=== PATIENT | female | born 1945 | race Caucasian/White ===

== ENCOUNTER 2023-06-14 21:18 | Outpatient (BNV) | payer MEDICARE, MEDICAID, SELFPAY | END 2023-06-15 09:00 | PROVIDERS: Admitting Provider Psychiatry & Neurology Psychiatry; PCP Internal Medicine; Visit Provider Internal Medicine Cardiovascular Disease | DX: I44.0 Atrioventricular block, first degree (principal) | CPT/HCPCS: 93010 ==

== ENCOUNTER 2023-06-14 21:18 | Inpatient (IN) | payer MEDICARE, MEDICAID, SELFPAY ==
--- NOTE | ~2023-06-14 | US_ITS ---
EXAMINATION: US VENOUS ULTRASOUND WITH DOPPLER LOWER EXTREMITY, BILATERAL CLINICAL INFORMATION: ble edema, calf swelling/tenderness, r/o dvt COMPARISON: None available. TECHNIQUE: Ultrasound of the deep veins is performed from the hip to the calf with compression sonography and color and pulse Doppler assessment. Spectral analysis with color-flow imaging is performed. FINDINGS: RIGHT: There is normal venous compression and respiratory variation and augmented flow. The visualized common femoral vein, superficial femoral vein, profunda femoral vein, popliteal vein, and the trifurcation region shows no evidence of deep venous thrombosis. There is no significant popliteal fossa cyst. LEFT: There is normal venous compression and respiratory variation and augmented flow. The visualized common femoral vein, superficial femoral vein, profunda femoral vein, popliteal vein, and the trifurcation region shows no evidence of deep venous thrombosis. There is no significant popliteal fossa cyst. If the patient's symptoms persist, followup ultrasound in 5 days 7 days might be of value to exclude proximal propagation from a non-visualized calf vein. US/US venous duplex LE BI IMPRESSION: No DVT demonstrated in the bilateral lower extremities.
--- OUTSIDE RECORDS SUMMARY | 2023-06-14 21:21 | XMS_ITS | Continuity of Care Document ---
Author Organization [facility] Address [address] [place] [address] Phone Care Team Providers Care Track Supervisor Name Role Phone No Primary Care, Physician Primary Care Provider Unavailable MD Ani Tillman Attending Provider MD Jas Michele Primary Care Provide r MD Mayco Contreras Admit Provider + MD Baljit Champagne Attending Provider [phone] Care Teams Patient Care Team Team Status: Active Member Role Status Dates Jas Michele MD Primary Care Provider Act margaret Visit Care Team Team Status: Inactive Member Role Status Dates Physician No Primary Care Primary Care Provider Active Ani Tillman MD Attending Provider Active Visit Care Team Team Status: Inactive Member Role Status Dates Estefania Jonas MD Emergency Provider Active Wilfred Bernabe MD Other Provider Active Jas Michele MD Primary Care Provider Act margaret Mayco Contreras MD Admit Provider Active Baljit Champagne MD Attending Provider Active Visit Care Team Team Status: Inactive Member Role Status Dates Physician No Primary Care Primary Care Provider Active Ani Tillman MD Emergency Provider Active Chief Complaint and Reason for Visit Chief Complaint weakness DIZZY, UNSTEADY GAIT Reason for Visit Dizziness Weakness Allergies, Adverse Reactions, Alerts Allergen Type Severity Reaction Last Updated Verified Status meclizine Allergy Unknown November 20, 2022 9:06am Byron s Active antihistamines Allergy Unknown November 25, 2022 12:2 6am No Active Social History Smoking Status Status Start Date End Date Date of Observa tion Unknown if ever smoked 2022 1:15pm Observation Status Date of Observation Not November 25, 2022 Observation Status Observation Response Date of Response Is pt a current\former smoke r or user of tobacco products? No November 25, 2022 1:15pm Does the patient use drugs? No Nov 1:15pm Additional Data Assigned Sex Female Problems Active Problems Medical Problem Onset Date Status Dizziness Active Hyperglycemia Active Weakness Active High blood pressure Active Medications Medication Status Dose Units Route Directions Qty Days Start Javi e End Date Instructions Multivitamin Active 1 TAB PO Daily Nov 12:00am Aspirin Active 81 MG PO Daily 30 30 November 30, 2022 12:00am Atorvastatin (Lipitor) 40 mg Tablet Active 80 MG PO Every Evening 60 30 November 30, 2022 12:00am Lisinopril Active 20 MG PO Daily 30 30 2022 12:00am Immunizations Immunization Event Date Not Given Reason Dose Number [employer] Lot Number Vaccine Information Statement (VIS) Detail influenza, high-dose, quadrivalent November 25, 2022 [id number] Procedures Procedure Date Performed Status XR chest pa & lat November 20, 2022 9:13am co mpleted CT head/brain wo con November 25, 2022 2:36am completed MR brain wo con November 25, 2022 10:41am com pleted CT angio head and neck November 25, 2022 10:4 2am completed US echo bubble study November 27, 2022 12:00a m completed Relevant Diagnostic Tests and/or Laboratory Data Laboratory Results Test Date/Time Result Interpretation Reference Range Result Comment Performing Site White Blood Count November 20, 2022 9:27am 6.9 10^3/uL 4.5-10.5 [facility] [id number] [address] [facility] [address] White Blood Count November 30, 2022 7:04am 7.5 10^3/uL 3.9-10.8 Delta: 11.0 on 11/29/22-0706 [facility] [id number] [address] [place] [address] Red Blood Count November 20, 2022 9:27am 4.50 10^6/uL 4.00-5.00 [facility] [id number] [address] [facility] [address] Red Blood Count November 30, 2022 7:04am 4.3 10^6/uL 4.2-5.6 [facility] [id number] [address] [facility] [address] Hemoglobin November 20, 2022 9:27am 13.9 g/dL 11.8-15.8 [facility] [id number] [address] Amb[address] [facility] [address] Hemoglobin November 30, 2022 7:04am 13.3 g/dL 12.0-15.2 [facility] [id number] [address] [facility] [address] Hematocrit November 20, 2022 9:27am 42.2 % 35.0-45.0 [facility] [id number] [address] Amb[address] [facility] [address] Hematocrit November 30, 2022 7:04am 40.5 % 35.0-45.0 [facility] [id number] [address] [facility] [address] Mean Corpuscular Volume November 20, 2022 9:27am 93.8 fL 80.0-100.0 [facility] [id number] [address] [facility] [address] Mean Corpuscular Volume November 30, 2022 7:04am 95.1 fL 82.0-102.0 [facility] [id number] [address] [facility] [address] Mean Corpuscular Hemoglobin November 20, 2022 9:27am 30.9 pg 23.0-31.0 [facility] [id number] [address] [facility] [facility] [address] Mean Corpuscular Hemoglobin November 30, 2022 7:04am 31.2 pg 25.6-33.2 [facility] [id number] [address] [facility] [address] Mean Corpuscular Hemoglobin Concent November 20, 2022 9:27am 32.9 g/dL 32.0-36.0 [facility] [id number] [address] [facility] [address] Mean Corpuscular Hemoglobin Concent November 30, 2022 7:04am 32.8 g/dL 32.0-36.0 [facility] [id number] [address] [facility] [address] Platelet Count November 20, 2022 9:27am 247 10^3uL 150-400 [facility] [id number] [address] [facility] [address] Platelet Count November 30, 2022 7:04am 263 10^3uL 150-400 [facility] [id number] [address] [facility] [address] RDW Standard Deviation November 30, 2022 7:04am 46.8 fL 32.9-69.6 [facility] [id number] [address] [facility] [address] RDW Coefficient of Variation November 20, 2022 9:27am 13.0 % 12.5-15.5 [facility] [id number] [address] [facility] [address] RDW Coefficient of Variation November 30, 2022 7:04am 13.3 % 12.0-15.0 [facility] [id number] [address] [facility] [address] Mean Platelet Volume November 20, 2022 9:27am 10.4 fL 7.0-10.5 [facility] [id number] [address] Timmons Katina [facility] [address] Mean Platelet Volume November 30, 2022 7:04am 11.1 fL 8.5-13.0 [facility] [id number] [address] [facility] [address] Neutrophils (%) (Auto) November 20, 2022 9:27am 72 % 44-74 [facility] [id number] [address] [facility] [address] Neutrophils (%) (Auto) November 26, 2022 6:18am 74.7 % 43.0-74.0 Delta: 63.6 on 11/25/22-0125 [facility] [id number] 199 [facility] [address] Lymphocytes (%) (Auto) November 20, 2022 9:27am 21 % 16-46 [facility] [id number] [address] [facility] [address] Lymphocytes (%) (Auto) November 26, 2022 6:18am 18.3 % 17.0-47.0 [facility] [id number] [address] [facility] [address] Monocytes (%) (Auto) November 20, 2022 9:27am 5 % 5-12 [facility] [id number] [address] [facility] [address] Monocytes (%) (Auto) November 26, 2022 6:18am 5.4 % 5.0-12.0 [facility] [id number] [address] [facility] [address] Eosinophils (%) (Auto) November 20, 2022 9:27am 1 % 0-8 [facility] [id number] [address] [facility] [address] Eosinophils (%) (Auto) November 26, 2022 6:18am 1.0 % 0.1-6.0 [facility] [id number] [address] [facility] [address] Basophils (%) (Auto) November 20, 2022 9:27am 0 % 0-2 [facility] [id number] [address] [facility] [address] Basophils (%) (Auto) November 26, 2022 6:18am 0.4 % 0.0-2.0 [facility] [id number] 199 [facility] [address] Immature/Total Granulocytes (auto) November 26, 2022 6:18am 0.2 % 0.001-5.0 [address] 199 [facility] [address] Nucleated Red Blood Cells % (auto) November 26, 2022 6:18am 0.0 % 0.0-0.2 [address] 199 [facility] [address] Absolute Neutrophils (auto) November 26, 2022 6:18am 6.1 10^3/uL 1.5-8.1 [place] [id number] [address] [place] [address] Absolute Lymphocytes (auto) November 26, 2022 6:18am 1.5 10^3/uL 0.95-4.2 [address] [place] [address] Absolute Monocytes (auto) November 26, 2022 6:18am 0.4 10^3/uL 0.2-1.2 [address] [place] [address] Absolute Eosinophils (auto) November 26, 2022 6:18am 0.1 10^3/uL 0.06-0.6 [address] [place] [address] Absolute Basophils (auto) November 26, 2022 6:18am 0.0 10^3/uL 0.0-0.12 [address] [place] [address] Absolute Immature Granulocyte (auto November 26, 2022 6:18am 0.02 K/uL 0.00-0.66 [address] [place] [address] Nucleated RBC Absolute Count (auto) November 26, 2022 6:18am 0.0 K/uL 0.00-0.[address] [place] [address] Urine Color November 20, 2022 9:20am Yellow Yellow [facility] [id number] [address] [facility] [address] Urine Clarity November 20, 2022 9:20am Clear Clear [facility] [place] [address] [facility] [address] Urine Specific Hartline November 20, 2022 9:20am <= 1.005 1.005-1.03 0 [facility] [place] [id number] [address] [facility] [address] Urine Glucose (UA) November 20, 2022 9:20am Negative Negative [facility] [place] [facility] [id number] [address] [facility] [address] Urine Bilirubin November 20, 2022 9:20am Negative Negative [facility] [place] [id number] 100 [facility] [address] Urine Ketones November 20, 2022 9:20am Negative Negative [facility] [place] [id number] 100 [facility] [address] Urine Occult Blood November 20, 2022 9:20am Negative Negative [facility] [place] [id number] [address] [facility] [address] Urine pH November 20, 2022 9:20am 6.0 5.0-7.0 [facility] [id number] [address] [facility] [address] Urine Protein November 20, 2022 9:20am Negative mg/dL Negative [facility] [id number] 100 [facility] [address] Urine Urobilinogen November 20, 2022 9:20am 0.2 E.U./dL 0.2-1.0 [facility] [id number] [address] [facility] [address] Urine Nitrite November 20, 2022 9:20am Negative Negative [facility] [place] [id number] 100 [facility] [address] Urine Leukocyte Esterase Caroline 15th, 2023 9:20am Trace Negative [facility] [place] [facility] [address] [place] [address] Urine Culture Reflexed November 20, 2022 9:20am N [facility] [place] [facility] [address] [place] [address] Urine WBC November 20, 2022 9:20am 6-10 /hpf 0-2 [facility] [place] [id number] [address] [place] [address] Urine RBC November 20, 2022 9:20am None seen /hpf 0-2 [facility] [id number] [address] [place] [address] Urine Squamous Epithelial Cells November 20, 2022 9:20am 1+ /hpf Trace [facility] [address] [place] [address] Urine Bacteria November 20, 2022 9:20am 1+ /hpf None Seen [facility] [place] [facility] [id number] [address] [place] [address] Urine Mucus November 20, 2022 9:20am None seen /hpf None Seen [facility] [place] [facility] [id number] [address] [place] [address] Sodium Level November 20, 2022 9:27am 145 mmol/L 128-145 [facility] [place] [facility] [id number] [address] [place] [address] Sodium Level November 30, 2022 7:04am 141 mmol/L 136-145 [facility] [id number] 199 [facility] [address] Potassium Level November 20, 2022 9:27am 4.2 mmol/L 3.6-5.1 [facility] [place] [facility] [id number] [address] [place] [address] Potassium Level November 30, 2022 7:04am 4.3 mmol/L 3.5-5.1 [facility] [id number] 199 [facility] [address] Chloride Level November 20, 2022 9:27am 107 mmol/L 98-108 [facility] [id number] [address] [facility] [address] Chloride Level November 30, 2022 7:04am 108 mmol/L 98-107 Delta: 101 on 11/28/22-0708 [facility] [id number] [address] [facility] [address] Carbon Dioxide Level November 20, 2022 9:27am 27 mmol/L 18-33 [facility] [id number] [address] [facility] [address] Carbon Dioxide Level November 30, 2022 7:04am 23 mmol/L 22-29 [facility] [id number] [address] [facility] [address] [facility] [address] Anion Gap November 20, 2022 9:27am 11 mmol/L 6-18 [facility] [id number] [address] AriannaHuy Katina [facility] [address] Anion Gap November 30, 2022 7:04am 10 mmol/L 6-18 [facility] [id number] [address] [facility] [address] [facility] [address] Blood Urea Nitrogen November 20, 2022 9:27am 14 mg/dL 7- [facility] [id number] [address] KellerHuy Katina [facility] [address] Blood Urea Nitrogen November 30, 2022 7:04am 14 mg/dL 6-20 [facility] [id number] 199 [facility]. [facility] [address] Creatinine November 20, 2022 9:27am 0.7 mg/dL 0.6-1.2 [facility] [id number] [address] Shanelle Ambriz [facility] [address] Creatinine November 30, 2022 7:04am 0.9 mg/dL 0.5-0.9 [facility] [id number] 199 [facility]. [facility] [address] Glomerular Filtration Rate Calc November 20, 2022 9:27am 89.02 Estimated GFR (CKD-EPI Refit 2020) units: mL/min/1.73m? ? [facility] [id number] [address] [facility] [address] Glomerular Filtration Rate Calc November 30, 2022 7:04am 65.84 Estimated GFR (CKD-EPI Refit 2020) units: mL/min/1.73m? ? [facility] [id number] [address] [facility] [address] Glucose Level November 20, 2022 9:27am 186 mg/dL 73-118 [facility] [id number] [address] [facility] [address] Glucose Level November 30, 2022 7:04am 110 mg/dL 74-109 [facility] [id number] [address] [facility] [address] Calcium Level November 20, 2022 9:27am 9.9 mg/dL 8.0-10.3 [facility] [id number] [address] [facility] [address] Calcium Level November 30, 2022 7:04am 9.2 mg/dL 8.6-10.6 [facility] [id number] [address] [facility] [address] Phosphorus Level November 30, 2022 7:04am 3.4 mg/dL 2.5-4.5 [facility] [id number] [address] [facility] [address] [facility] [address] Total Bilirubin November 25, 2022 1:25am 0.5 mg/dL 0.4-1.2 [facility] [id number] [address] [facility] [address] Aspartate Amino Transf (AST/SGOT) November 25, 2022 1:25am 13 IU/L 10-35 [facility] [id number] [address] [facility] [address] Alanine Aminotransferase (ALT/SGPT) November 25, 2022 1:25am 15 U/L 5-33 [facility] [id number] [address] [facility] [address] Alkaline Phosphatase November 25, 2022 1:25am 78 IU/L 35-104 [facility] [id number] [address] [facility] [address] [facility] [address] Total Protein November 25, 2022 1:25am 6.7 g/dL 6.6-8.7 [facility] [id number] [address] [facility] [address] Albumin November 25, 2022 1:25am 3.9 g/dL 3.5-5.2 [facility] [id number] [address] [facility] [address] [facility] [address] Magnesium Level November 30, 2022 7:04am 2.0 mg/dL 1.6-2.6 [facility] [id number] [address] [facility] [address] [facility] [address] Troponin I November 20, 2022 9:30am 0 ng/mL 0.00-0.04 [facility] [id number] [address] [facility] [address] Troponin T November 25, 2022 1:25am < 0.01 ng/mL 0.0-0.01 [facility] [id number] [address] [facility] [address] Triglycerides Level November 26, 2022 6:18am 57 mg/dL 40-150 Normal = <150 mg/dL-------- ------- [facility] [id number] [address] [facility] [address] Cholesterol Level November 26, 2022 6:18am 144 mg/dL <200 Desirable = <200 mg/dL-------- [facility] [id number] 199 [facility] [address] LDL Cholesterol, Calculated November 26, 2022 6:18am 85 mg/dL <130 Optimal = <100 mg/dL Near Optimal = 100-129 mg/dL-------- -- [facility] [id number] 199 [facility] [address] HDL Cholesterol November 26, 2022 6:18am 48 mg/dL 45-65 Low = <40 mg/dL Desirable = >59 mg/dL-------- --------- [facility] [id number] [address] [place] [address] Cholesterol/HDL Ratio November 26, 2022 6:18am 3.0 [place] = <3.5 Good = >5.0--------- ---- [facility] [id number] [address] [facility] [place] [address] Cholesterol Ratio (LDL/HDL) November 26, 2022 6:18am 1.8 [place] = <2.0 Good = >5.0--------- --- Lipid Profile Reference Ranges based on NCEP Guidelines [facility] [id number] [address] [facility] [address] Vitamin B12 Level November 25, 2022 1:25am 601.7 pg/mL 211-946 [address] [facility] [address] Thyroid Stimulating Hormone (TSH) November 25, 2022 1:25am 3.83 uIU/mL 0.27-4.20 [facility] [id number] [address] [facility] [address] Hemoglobin A1c November 26, 2022 6:18am 5.9 % 4.2-5.8 [facility] [id number] [address] [facility] [address] Estimated Average Glucose (eAG) November 26, 2022 6:18am 123 mg/dL [facility] [id number] [address] [facility] [address] Clostridium difficile (PCR)(LAB) November 29, 2022 6:00am Negative Negative [facility] [id number] [address] [facility] [address] SARS-CoV-2 (PCR) November 20, 2022 9:16am Negative Negative Negative results do not preclude SARS-CoV-2 infection and should not be used as the sole basis for patient management decisions. Negative results should be considered in the context of a patient? s recent exposures history and the presence of clinical signs and symptoms consistent with COVID-19. If inconsistent with clinical signs and symptoms or necessary for patient management, samples should be tested with different authorized or cleared molecular tests.This test was performed with the [employer] Now, which has been authorized by FDA under an EUA for use by laboratories certified under the Clinical Laboratory Improvement Amendments of 1988 (CLIA)This test was performed with the [employer] Now, which has been authorized by FDA under an EUA for use by laboratories certified under the Clinical Laboratory Improvement Amendments of 1988 (CLIA) [facility] [id number] [address] [facility] [address] Bedside Glucose November 25, 2022 1:21am 165 mg/dL 70-115 [facility] [id number] 199 [facility] [address] Diagnostic Imaging Reports Author [facility] November 25, 2022 11:51am Report Date/Time November 25, 2022 11:54am [facility] [address] [place] [address] [address] Scan Report Signed Patient: Trey Dacosta MR#: [id number] : 1945 Acct: [id number] Age/Sex: 76 / F ADM Date: 11/25/22 Loc: M.3N V1R535-[address]: Mandeep Inpatient Provider ER Physician: Estefania Jonas MD Ordering Physician: Estefania Jonas MD Pat Date of Service: 11/25/22 Procedure(s): CT head/brain wo con Accession Number(s): [id number] CC: Estefania Jonas MD; No Primary Care Physician * CT head/brain wo con Accession Number(s): [id number] Reason for Study: weakness blurred vision -- Radiation Dose Report Topogram: 0.21 mGy Angio CTDIvol: 46.56 mGy DLP:843 mGycm -- Date/Time: 11/25/2022 3:[address] HEAD WITHOUT CONTRAST. TECHNIQUE: Contiguous 5-mm axial images through the head without contrast. Automated exposure control, dose reduction, and iterative reconstruction techniques were used. COMPARISON: None. INDICATION: Weakness, blurred vision. FINDINGS: There is a small area of hypoattenuation in the subcortical white matter of the left occipital lobe. Mild hypodensities are present in the periventricular white matter of bilateral cerebral hemispheres. There is no acute intracranial hemorrhage, mass-effect, shift of midline structures, or hydrocephalus. The calvarium is intact, and the included paranasal sinuses and mastoid air cells are clear. IMPRESSION: 1. Findings most consistent with a subacute, small, ischemic infarct in the left occipital lobe. MRI provide more definitive assessment. 2. Mild chronic small vessel ischemic changes. The final interpretation is in agreement with the preliminary interpretation issued by [facility]. Electronically Signed by: Yandel Bowling MD 11/25/2022 11:51 AM ___ Technologist: China Heard Dictated By: Yandel Bowling MD Transcribed By: [email or web address] Signed By: <Electronically signed by Yandel Bowling MD in OV> Yandel Bowling MD Signed Date/Time: 11/25/22 1151 DD/ 1146 TD/TT: 11/25/22 1151 CC: Estefania Jonas MD; No Primary Care Physician Author García [facility] November 25, 2022 1:18pm Report Date/Time November 25, 2022 1:21pm [address] [address] Magnetic Resonance Report Signed Patient: Trey Dacosta MR#: [id number] : 1945 Acct: [id number] Age/Sex: 76 / F ADM Date: 11/25/22 Loc: Jose AN E1Y680-[address]: Mandeep Inpatient Provider ER Physician: Estefania Jonas MD Ordering Physician: Mayco Contreras MD [facility] Date of Service: 11/25/22 Procedure(s): MR brain wo con Accession Number(s): [id number] CC: Inpatient Provider,Mandeep ; No Primary Care Physician; Mayco Contreras MD * MR brain wo con Interpretation Location: PACSWKS4 Accession Number: [id number] Date / Time: 11/25/2022 12:30 PM -- INDICATION: remote infarct on CT head TECHNIQUE: Multisequence multiplanar MRI of the brain was performed without IV contrast COMPARISON: CT dated November 25, 2022 Findings: There is mild generalized cerebral volume loss. There is no hydrocephalus. There is no intracranial mass lesion or focal mass effect. There are scattered foci of T2/FLAIR signal abnormality within the periventricular and subcortical white matter, nonspecific likely representing chronic microvascular ischemic changes. There is chronic infarct within the left occipital lobe. There is no abnormally restricted diffusion. No acute intraparenchymal hemorrhage is present. There is no extraaxial collection. There is focus of susceptibility artifact within the left basal ganglia compatible with chronic microhemorrhage. There is no sellar or parasellar mass. Signal voids are present in the major intracranial arteries consistent with their patency. The visualized paranasal sinuses are well aerated. The mastoid air cells are well aerated. The imaged orbits are unremarkable. IMPRESSION: 1. No acute intracranial abnormality. 2. 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 Electronically Signed by: García Cr MD 11/25/2022 1:18 PM ___ Technologist: Annalise Jose Dictated By: García Cr MD Transcribed By: [email or web address] Signed By: <Electronically signed by García Cr MD in OV> MD Sundar Signed Date/Time: 11/25/221317 DD/ 16 TD/TT: 11/25/221317 CC: Inpatient Provider,Mandeep ; No Primary Care Physician; Mayco Contreras MD Author [facility] November 25, 2022 3:16pm Report Date/Time November 25, 2022 3:20pm [address] [address] [place] Scan Report Signed Patient: Trey Dacosta MR#: [id number] : 1945 Acct: [id number] Age/Sex: 76 / F ADM Date: 11/25/22 Loc: M.3N [id number]: Mandeep Inpatient Provider ER Physician: Estefania Jonas MD Ordering Physician: Mayco Contreras MD [facility] Date of Service: 11/25/22 Procedure(s): CT angio head and neck Accession Number(s): [id number] CC: No Primary Care Physician; Mayco Contreras MD * CT angio head and neck Accession Number(s): [id number] Reason for Study: remote infarct in occipital lobe -- Radiation Dose Report Topogram: 0.05 mGy Angio CTDIvol: 1.37 mGy, 5.52 mGy, 5.55 mGy DLP:234 mGycm -- Date/Time: 11/25/2022 11:[address] ANGIOGRAPHY NECK. TECHNIQUE: Contiguous 3-mm axial images from the level just below the aortic arch to the level just cephalad to the [place] after addition of intravenous contrast (100 cc of Omnipaque 350), with imaging during the arterial phase of enhancement. Subsequent 1-mm axial, MIP coronal, sagittal, oblique, and a 3-D volume rendered images generated on independent workstation with volumetric analysis. Automated exposure control, dose reduction, and iterative reconstruction techniques were used. COMPARISON: None. INDICATION: Occipital lobe infarct. FINDINGS: The aortic arch has bovine arch variant anatomy, with the common origin of the brachiocephalic and left common carotid arteries and demonstrates mild atherosclerosis, without aneurysms or dissections. The great vessels originating from the aortic arch are within normal limits. On the right, there is very mild atherosclerosis within the proximal internal carotid artery. The vertebral artery is unremarkable and dominant. On the left, there is mild atherosclerosis within the carotid bulb and the proximal most internal carotid artery. The vertebral artery is unremarkable and nondominant. Apart from the vascular structures, the soft tissues of the neck show no significant abnormalities. Bilateral orbits are unremarkable. The included upper thorax demonstrates a 1 cm groundglass density nodule in the apical left upper lobe. There are no suspicious bony lesions. There is cervical spondylosis, with moderate central canal stenosis at C5-6 and pronounced bilateral C4-5 and C5-6 and right C6-7 neural foraminal stenoses. IMPRESSION: 1. No significant carotid or vertebral arterial pathology on either side. 2. 1 cm groundglass density nodule in the TAYLA, for which 6-12 month follow-up CT is recommended to assure stability/resolution. 3. Cervical spondylosis with notable central canal and neural foraminal compromise, as described. Note, that the measurements of the carotid artery stenosis are based on velocity parameters that correlate the residual internal carotid artery diameter with that of the [place] symptomatic carotid endarterectomy trial (NASCET-based) stenosis levels. CT ANGIOGRAPHY HEAD. TECHNIQUE: Contiguous 2-mm axial images from the level just below the aortic arch to the level just cephalad to the [place] after addition of intravenous contrast (100 cc of Omnipaque 350), with imaging during the arterial phase of enhancement. Subsequent 0.5-mm axial, MIP coronal, sagittal, oblique, and a 3-D volume rendered images generated on independent workstation with volumetric analysis. Automated exposure control, dose reduction, and iterative reconstruction techniques were used. COMPARISON: Noncontrast CT of 8 hours earlier. INDICATION: Occipital lobe infarct. FINDINGS: There is a short segment of 50% stenosis in the anterior left M2 division. There is a focal 50% stenosis in the proximal most right P2 segment. There is a origin of the left posterior cerebral artery, with essentially complete occlusion of the P1 segment and reconstitution of diminished flow more distally within the P2 segment. There is mild atherosclerosis of bilateral cavernous internal carotid arteries. The rest of the [place] and its major branches are within normal limits, without occlusions, hemodynamically significant stenoses, or aneurysms. There is mild atherosclerosis within the nondominant distal right vertebral artery. The nondominant distal left vertebral and the basilar arteries are unremarkable. There is no vascular malformation. There is no large acute intracranial hemorrhage, mass effect, shift of midline structures, hydrocephalus, or intra-axial or extra-axial abnormal hyperenhancement. Major venous sinuses are patent. IMPRESSION: 1. origin of the left WINDOW SHADE RING SEWER, with essentially complete occlusion of the P1 segment and reconstitution of diminished flow more distally within the P2 segment. 2. Focal 50% stenosis in the proximal most right P2 segment. 3. Short segment of 50% stenosis in the anterior left M2 division. Electronically Signed by: Yandel Bowling MD 11/25/2022 3:16 PM ___ Technologist: Rashmi Means Dictated By: Yandel Bowling MD Transcribed By: OV.PSCRIBE Signed By: <Electronically signed by Yandel Bowling MD in OV> Yandel Bowling MD Signed Date/Time: 11/25/221515 DD/ 54 TD/TT: 11/25/221515 CC: No Primary Care Physician; Mayco Contreras MD Author Sean Ramon [facility] November 27, 2022 12:21pm Report Date/Time November 27, 2022 11:08am [address] [address] Electrocardiogram Report Signed Patient: Trey Dacosta MR#: [id number] : 1945 Acct: [id number] Age/Sex: 76 / F ADM Date: 11/25/22 Loc: MAg [id number]: Gina Ott MD ER Physician: Estefania Jonas MD Ordering Physician: Estefania Jonas MD [facility] Date of Service: 11/25/22 Procedure(s): EKG (ER) Accession Number(s): [id number] CC: Valentino Michele MD; Estefania Jonas MD Date: 11/25/22 Time: 00:47 Clinical Diagnosis: Referred By: Rhythm:Sinus rhythm/ 62 Rate auricular: ventricular: P-R interval: .24 Clayton: +30 Q-R-S interval: .08 Q-T interval: .40 P-Wave: Normal. Q-R-S complexes: Normal. T-Waves: Nonspecific ST changes. Other findings: Interpretation: Sinus rhythm, first degree AV block, nonspecific ST changes, nosignificant change from prior EKG of 11/20/22. ___ Technologist: Dictated By: Sean Ramon MD Transcribed By: KATHERINE Signed By: <Electronically signed by Sean Ramon MD> Sean Ramon MD Signed Date/Time: 11/27/22 1221 DD/ 0800 TD/TT: 11/27/22 1106 CC: Valentino Michele MD; Estefania Jonas MD Author Sean Ramon [facility] November 28, 2022 8:17am Report Date/Time November 28, 2022 8:21am [address] [address] Ultrasound Report Signed Patient: Trey Dacosta MR#: [id number] : 1945 Acct: [id number] Age/Sex: 76 / F ADM Date: 11/25/22 Loc: M.3N [id number]: Baljit Champagne MD ER Physician: Estefania Jonas MD Ordering Physician: Gina Ott MD [facility] Date of Service: 11/27/22 Procedure(s): US echo bubble study Accession Number(s): [id number] CC: Gina Ott MD; Valentino Michele MD; Mayco Contreras MD * Exam Description: US ECHO BUBBLE STUDY Interpretation Location: [facility] Patient Name: TREY DACOSTA Patient Date Of : 1945 Age: 76 years Height: 63 Weight (lb): 160 HR (bpm): 70 BSA (m2): 1.76 m2 Exam Information: Exam Date/Time:11/27/2022 Reason for Exam: STROKE Targeting Acquisition Officer: Rashmi Arshad RDCS Exam Location: Cardiology Department Machine: Vivid E9 Echocardiographic Measurements: The following procedures were performed during this exam: M-Mode, Color Flow, 2D and Doppler Normal adult values are depicted in parenthesis Results: Left Atrium - Long Clayton Dimension: 2.9 cm(<=4.0 cm) Left Atrium - Four Chamber Length: 5.4 cm(<=5.2 cm) Left Atrium - Volume 33 ml (<=40 ml) Left Atrium - LA Volume/BSA: 18.97 ml/m2 (<=34ml/m2) Left Ventricle - Septal Wall Thickness: 1.0 cm (0.6 -1.1 cm) Left Ventricle - Inferolateral Thickness: 1.0 cm (0.6 -1.1cm) Left Ventricle - Diastolic Dimension: 3.2 cm (<=5.6 cm) Left Ventricle - Systolic Dimension: 1.8 Left Ventricle - Ejection Fraction: 70% (>=55%) Left Ventricle - Lateral Peak E': 0.06 m/s (> 0.08 m/s) Left Ventricle - Septal Peak E': 0.04 m/s (>0.08 m/s) Left Ventricle - Ratio E/E': 20 (<13) Right Ventricle - Diastolic Diameter: 2.8 (<=4.0 cm) Right Atrium - Four Chamber Length: 5.5 cm (<=5.0cm) Aorta - Sinus Level: 3.0 cm (<=3.6 cm) Aorta - Ascendin.2 cm (<=3.4 cm) Aortic Valve - Peak Velocity: 1.1 m/sec (<=2.0 m/sec) Mitral Valve - E Wave: 0.9 m/sec Mitral Valve - A Wave: 0.7 m/sec Mitral Valve - E/A ratio: 1.2 Mitral Valve - E Wave deceleration time: 234 ms (140-250 ms) Findings: Left Atrium: Normal Right Atrium: Normal Intra-atrial septum intact. Negative bubble study at rest and with Valsalva Left Ventricle: Normal Right Ventricle: Normal Aorta: Normal Aortic Valve: Normal Mitral Valve: Normal Tricuspid Valve: Normal Pulmonic Valve/Pulmonary Artery: Normal Pericardium: Normal Doppler Findings: Trace MR and TR Conclusion: 1 normal left ventricle size and systolic function 2. Left ventricle ejection fraction 70% 3. Trace mitral insufficiency and trace tricuspid insufficiency 4 intra-atrial septum intact. Negative bubble study at rest and with Valsalva. Electronically Signed by: Sean Ramon MD 11/28/2022 8:17 AM ___ Technologist: Rashmi Arshad Dictated By: Sean Ramon MD Transcribed By: OV.PSCRIBE Signed By: <Electronically signed by Sean Ramon MD in OV> Sean Ramon MD Signed Date/Time: 11/28/22816 DD/ 0 TD/TT: 11/28/22816 CC: Gina Ott MD; Valentino Michele MD; Mayco Contreras MD Vital Signs Vital Reading Result Reference Range Collection Date/Time Height 63 [in_i] November 20, 2022 9:08am Weight 69.00 kg November 20, 2022 9:08am Body Temperature 98.4 [degF] 97.5-99.3 November 062022 9:08am Heart Rate 80 /min 60-90 November 20, 2022 9:08am Respiratory rate 16 /min -November 062022 9:08am Oxygen saturation by Pulse oximetry 98 % 95-100 November 20, 2022 9:08am BP Systolic 182 mm[Hg] 100-160 November 20, 2022 9:08am BP Diastolic 98 mm[Hg] 60-90 November 20, 2022 9:08am Height 63 [in_i] November 25, 2022 1:15pm Weight 72.80 kg November 25, 2022 1:15pm Body Temperature 98.3 [degF] 97.5-99.3 November 072022 12:00pm Heart Rate 64 /min -90 November 30, 2022 12:00pm Respiratory rate 20 /min 02-24November 072022 12:00pm Oxygen saturation by Pulse oximetry 97 % 95-100 November 30, 2022 12:00pm BP Systolic 125 mm[Hg] 100-160 November 30, 2022 12:00pm BP Diastolic 63 mm[Hg] 60-90 November 30, 2022 12:00pm Advance Directives Advance Directive Response Recorded Date/ Time Date Patient Queried 11/25/22 November 072022 12:25am Does the patient have a Healthcare Proxy? No November 25, 2022 12:25am Insurance Providers Guarantor Trey Phyllis Address [address] [place], [place] [address] Contact Info. Home Phone: Payer Policy Id Coverage Id Subscriber's Name Subscriber Id Effective Date Expiration Date Health Safety Net Secondary [id number] Trey Dacosta [id number] Medicare [id number] Trey Dacosta [id number] [facility] 2009 Encounters Encounter Location(s) Arrival/Admit Date Discharge/Depart Date Provider(s) Departed Emergency [facility] [place] [place] November 20, 2022 9:01am November 20, 2022 11:05am null Departed Clinical [facility] November 20, 2022 9:18am November 20, 2022 9:19am Ani Tillman MD Discharged Inpatient [place] [address] November 25, 2022 9:30am November 30, 2022 4:59pm Subha Medina MD Recent Diagnosis Onset Date Dizziness Weakness Mental Status Observation Response Date Recorded Patient Orientation Oriented x3 November 262022 9:00am Awake November 26, 2022 9:00am Alert November 26, 2022 9:00am Forgetful November 26, 2022 9:00am Assessments Diagnosis Onset Date Resolution Status Dizziness acute Weakness acute Plan of Treatment Future Tests Future scheduled test information is unavailable Pending Tests Pending diagnostic test information is unavailable Future Visits Future appointment information is unavailable Referrals to Other Providers Reason for Referral Referral Start Date Provider Provider Contact Information Provider Address Venessa Townsend MD Work Phone: [facility] [employer] [facility] [address] PCPs Accepting N ew Patients Work Phone: [facility] No Primary Care Physician Future Procedures Procedure Name Ordered Date Scheduled Date Admission Order November 25, 2022 10:05am Sep tember 2022 10:06am Consult to Case Management November 25, 2022 4:40am November 25, 2022 4:[address]am Place in Observation Status (ED) November 25, 2022 4:40am November 25, 2022 4:40a m Consult to Physical Therapy November 25, 2022 4:40am November 25, 2022 4:40am Clin Eval Swallowing Function November 26 8:01am November 26, 2022 12:00am Status Change November 27, 2022 4:33pm [facility] 2022 12:00am Discharge Order November 30, 2022 4:13pm Nov [facility] 2022 4:13pm Bed Request November 25, 2022 9:25am Sept emb 2022 9:25am Bed Request November 25, 2022 9:25am [facility] 2022 9:26am Discontinue from ED Observation November 25, 2022 9:27am November 25, 2022 9:27a m Smoking Status November 25, 2022 10:05am Sep tember 2022 10:06am Add On LAB Test November 25, 2022 2:24am Nov 2:24am Add On LAB Test November 29, 2022 3:39pm Nov 3:39pm Consult to Physician November 25, 2022 9:25am November 25, 2022 9:25am VTE Prophylaxis/Medical November 25, 2022 10: 05am November 25, 2022 10:06am Future Medications Future medication information is unavailable Patient Instructions How to Take a Blood Pressure (ED) Weakness (ED) DASH Eating Plan (ED) Lisinopril (By mouth) Aspirin (By mouth) Atorvastatin (By mouth) [facility] Health Related Social Needs (HRSN) Resource List Ischemic Stroke (DC) Dizziness (ED) Dizziness (GEN) Goals Acute Goals Author Authored Date Remain Free of Injury (Falls ) Minnie Marti [facility] November 30, 2022 5:00pm Exhibit optimal tissue integrity * Exhibits granulation/healing at site * Exhibits decreased drainage at site * Exhibits no s/s of infection * Exhibits a decrease in lesion size * Maintains nutritional status * Maintains hydration status * Maintains optimal lab values Suze Ramon [facility] November 25, 2022 11:15pm Pain Discharge Outcomes Suze Ramon [facility] November 25, 2022 11:15pm Hypertension Discharge Outco mes Minnie [facility] November 30, 2022 5:00pm Hospital Discharge Instructions Additional Instructions Dear Trey Dacosta, It was a pleasure taking part in your care here at [facility] [place] [facility]! Why was I admitted to the hospital? You were admitted for dizziness What was done for me while I was in the hospital?For your dizziness, extensive testings were done. This included CT scan and MRI scan of your. 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 You were seen and evaluated by the neurology team. It is thought that your dizziness is unlikely to be related to the stroke that was seen in the MRI of your brain. For your stroke, we checked other potential causes for having a stroke including your lipid panel, and an A1c (to see if you have diabetes). You were started on a cholesterol-lowering medication called atorvastatin. You are also started on baby aspirin for prevention of future stroke. - We also checked other potential causes of your dizziness including orthostasis (positional lightheadedness associated with low blood pressure) which was negative. You were seen and evaluated by the physical therapy team for vestibular exercises. You are recommended to continue these vestibular exercises with outpatient physical therapy sessions. ??? Your started on a blood pressure medication called lisinopril What should I do when I leave the hospital? - Please take all of your medications as prescribed. - Please schedule and establish care with a primary care physician at your earliest convenience. You will need to have a Zio patch (a rhythm monitor) to see whether you have paroxysmal atrial fibrillation (abnormal heart rhythm) that could cause a stroke. -While you are awaiting for appointment for outpatient physical therapy, you can look up vestibular exercises on the Internet to help minimize your symptoms. Sincerely, Your [facility] Care Team Consultation Note Author Wilfred Bernabe [facility] November 26, 2022 11:21am Note Date/Time November 26, 2022 11:21am [address] [address] Neurology Consult Patient: Trey Dacosta Attending MD: Gina Ott MD : 1945 Dictating Provider: Wilfred Bernabe MD Age/Sex: 76 / F Admit Date: 11/25/22 Discharge Date: MedRec #: [id number] Location: [facility] [id number] cc: Wilfred Bernabe MD * Neurology HPI - Consult Order Consult Order: 11/25/22 04:40 Consult to Case Management [CONS] Stat Reason for Case Management Consult: ? services vs rehab Consult to Physical Therapy [CONS] Stat Comment: Reasons for Therapy: Safety Assmt for Home 11/25/22 09:25 Consult to Physician [CONS] Stat Consulting Provider: Wilfred Bernabe Reason For Exam: DIZZY, UNSTEADY GAIT Have you spoken to consulting provider/service?: Yes 11/26/22 Consult to Occupational Therapy [CONS] Routine Comment: Reasons for Therapy: Safety Assmt for Home Speech [Clin Eval Swallowing Function] [CONS] Routine Was the patient primarily evaluated for stroke or TIA?: No - Consult Narrative Consult HPI: CC: dizziness HPI: 76yo woman with 6 week hx of dizziness. She reports that she would feel dizzy usually in the morning shortly after getting out of bed. A few times she has to close her eyes feeling that her yes were jerking. Most of the time dizziness is not spinning feeling but rather that of imbalance. She does not feel faint. NO associated diplopia, weakness, numbness. Her ears at times feel clogged lately. No migraine hx and no current headaches. Neurology ROS Review of systems: all other systems have been reviewed, as per HPI otherwise neg. PMFSHx Past Medical History: DVT with ivc filter (removed in 2014 ), hip fracture , bipolar disorder Functional capacity: Independent ADL Family History: no neuro issues Social History: does not smoke - Smoking Cessation Treatment Is pt a current\former smoker or user of tobacco products?: No HMed & Allergies Active Medications: Current Medications Acetaminophen (Acetaminophen 325 Mg Tablet) 650 mg PO Q6H PRN PRN Reason: Temp>101.5 &/or Pain Score:1-3 Aspirin (Aspirin Chewable 81 Mg Tablet) 81 mg PO DAILY RUT Last Admin: 11/26/22 10:00 Dose: 81 mg Atorvastatin Calcium (Atorvastatin 40 Mg Tablet) 80 mg PO QPM RUT Last Admin: 11/25/22 10:56 Dose: 80 mg Enoxaparin Sodium (Enoxaparin 40 Mg/0.4 Ml Syringe) 40 mg SUB-Q Q24H RUT Last Admin: 11/26/22 10:00 Dose: 40 mg Lisinopril (Lisinopril 5 Mg Tablet) 5 mg PO DAILY RUT; Protocol Last Admin: 11/26/22 10:00 Dose: 5 mg Magnesium Hydroxide (Magnesium Hydroxide 30 Ml Udc) 30 ml PO DAILY PRN PRN Reason: Constipation Step 2 Melatonin (Melatonin 5 Mg Tablet) 5 mg PO HS PRN PRN Reason: Insomnia Last Admin: 11/26/22 01:14 Dose: 5 mg Polyethylene Glycol (Polyethylene Glycol 3350 17 Gm Packet) 17 gm PO DAILY PRN PRN Reason: Constipation Step 1 Home Medications Medication Instructions Recorded Confirmed Type multivitamin 1 tab PO DAILY 11/25/22 11/25/22 History Allergies Allergy/AdvReac Type Severity Reaction Status Date / Time meclizine [From Antivert] Allergy Unknown Verified 11/20/22 09:06 antihistamines Allergy Unknown Uncoded 11/25/22 00:26 Neurology Exam Vital signs: Temp Pulse Resp BP Pulse Ox O2 Del Method 98.4 F 70 18 142/64 97 Room Air 11/26/22 08:00 11/26/22 08:00 11/26/22 08:00 11/26/22 08:00 11/26/22 08:00 11/26/22 08:00 Narrative: PHYSICAL EXAMINATION: General/ psych : no acute distress, pleasant, appropriate affect, conversant, alert and oriented to person, place and time. Fund of knowledge normal Skin: no rash, normal temperature and texture HENT: normocephalic, no signs of trauma, oropharynx clear, moist mucous membranes. Neck: supple, full range of motion no LAD, no carotid bruits. No thyromegaly Chest: CTAB, good respiratory effort. Heart: RRR, no m/r/g. Abdomen: s/nt/nd/BS+, no masses or HSM. Extremities: no clubbing, cyanosis or edema NEURO EXAM: LANGUAGE: No aphasia or dysarthria CRANIAL NERVES: PERRL, EOMI, visual park full. Anicteric sclerae Facial sensation intact + good masseter and temporalis tone/contraction bilaterally. Face symmetric, smile symmetric, orbicularis oculi strong bilaterally. Hearing intact to voice. Palate elevates symmetrically. Tongue and palate midline. Shoulder shrug/head turning 5/5 MOTOR: Muscle bulk and tone normal without spasticity or rigidity in both arms and legs R L Deltoid 5/5 5/5 Biceps 5/5 5/5 Triceps 5/5 5/5 Hand extensors 5/5 5/5 Hand flexors 5/5 5/5 Interossei 5/5 5/5 Hip flexion 5/5 5/5 Quadriceps 5/5 5/5 Hamstrings 5/5 5/5 Dorsiflexion 5/5 5/5 Plantar flex 5/5 5/5 No pronator drift MSRs: R L Biceps 2+ 2+ Triceps 2+ 2+ Brachioradialis 2+ 2+ Patellar 2+ 2+ Achilles 2+ 2+ Downgoing toes on plantar stimulation bilaterally SENSORY: Sensation intact in UE and LE bilaterally to temperature. vibration reduced but present in toes Neglect testing: No extinction on bilateral visual stimulation. CEREBELLAR: Finger to nose and heel to leon normal bilaterally Jing Hallpike neg bilat Results - Data Reviewed Patient Data Reviewed: I've reviewed the relevant labs,rad studies,tracings & medical records Findings: mri brain and CTA head/neck images reviewed, notes and labs reviewed - Laboratory CBC & Chem 7: 11/26/22 06:18 11/26/22 06:18 Laboratory Results: Laboratory Results - Last 12 hours 11/26/22 06:18: RBC 4.3, MCV 94.4, MCH 30.9, MCHC 32.7, RDW Std Deviation 46.5, RDW Coeff of Nathaniel 13.2, MPV 11.1, Neut % (Auto) 74.7 H D, Lymph % (Auto) 18.3, Sandoval % (Auto) 5.4, Eos % (Auto) 1.0, Baso % (Auto) 0.4, Abs Immat Gran (auto) 0.02, Absolute Neuts (auto) 6.1, Absolute Lymphs (auto) 1.5, Absolute Monos (auto) 0.4, Absolute Eos (auto) 0.1, Absolute Basos (auto) 0.0, Absolute Nucleated RBC 0.0, Nucleated RBC % (auto) 0.0, Imm/Tot Granulo (auto) 0.2 11/26/22 06:18: Anion Gap 10, GFR Calculation 75.84, Calcium 9.0, Phosphorus 2.6, Magnesium 2.0, Triglycerides 57, Cholesterol 144, LDL Cholesterol, Calc 85,HDL Cholesterol 48, LDL/HDL Ratio 1.8, Cholesterol/HDL Ratio 3.0 Neurology A&P - Assessmemt and Plan Assessment and Plan: 76yo woman with c/o 6 wk hx of dizziness/imbalance as above. On exam she has no appendicular ataxia, jing hallpike is neg, eye movements nl. She reports no neck or back pain and has no significant sensory loss in her legs. MRI brain with oldL occipital stroke with intracranial atherosclerotic disease as noted on CTA. R VA stenosis does not seem to be significant enough to cause VBI, I doubt this isthe case here. Would check orthostatics. If neg, would benefit from outpt vestibular therapy given her reports of what sounds like nystagmus and dizzinessupon getting out of bed. She would also benefit from a consultation and vestibular testing at [facility] dizziness clinic with her complaints of earsfeeling clogged and her reports of nystagmus elicited by movement (not seen on exam today). Documented By: Wilfred Bernabe MD 11/26/22 1112 Signed By: <Electronically signed by Wilfred Bernabe MD> 11/26/22 1121 Copies to: Discharge Summary Note Author Joya North [facility] November 29, 2022 2:13pm Note Date/Time November 29, 2022 2:13pm [place] [id number] CM/SW Discharge Planning Note Patient: Trey Dacosta Attending MD: Baljit Champagne MD : 1945 Dictating Provider: Joya North RN Age/Sex: 76 / F Admit Date: 11/25/22 Discharge Date: [facility] #: [id number] Location: [facility] [id number] cc: * CM/SW Discharge Planning Note - Discharge Planning Notes Discharge Plan: Ca home with services from [facility] services Anticipated date of discharge: 11/29/22 Community Services required at discharge: Yes Community Services: Home Health Aide, Home Health Nurse, Physical Therapy Are Community [facility] Durable Medical Equipment Needed Upon Discharge: Walker (trial RW ) Patient offered choice of a preferred agency/facilty:: Yes Patient declined recommended post acute services: [facility] Discussed Discharge Plan with Patient/Family: Yes Paper Work Given to the Patient at Discharge: Important Medicare Message #2 - Discharge Plan/Instructions Referrals/Community Services: Jas Michele MD [Primary Care Provider] - Documented By: Joya North RN 11/29/22 1411 Signed By: <Electronically signed by Joya North RN> 11/29/22 1413 Copies to: Discharge Summary Note Author Baljit Champagne [facility] November 30, 2022 4:23pm Note Date/Time November 30, 2022 4:13pm [facility] . [address] [place] [address] Hospitalist Discharge Summary Patient: PhyllisTrey jones Attending MD: Baljit Champagne MD : 1945 Dictating Provider: Baljit Champagne MD Age/Sex: 76 / F Admit Date: 11/25/22 Discharge Date: MedRec #: [id number] Location: [facility] [id number] cc: Valentino Michele MD * Discharge Summary - Discharge Date: 11/30/22 Date of admission: 11/25/22 09:30 Primary care physician: Jas Michele Chief Complaint: Dizziness HPI HPI: 76 y with h/o DVT with ivc filter (removed in 2014 ), hip fracture , bipolar disorder ( per chart ) presented to the hospital with dizziness. Patient reports room spinning sensation especially when she gets up that since 1 month but progressively worse in the last 5 days with unsteady gait. She reports a mechanical fall 3 days ago but did not have headstrike or any injury or LOC. Shewent to the urgent care on 09/15 , had negative basic workup so sent home and she presented again today due to worsening symptoms. She doesnt have a primary care physician and is not taking any medications at home currently , so she is unaware of high blood pressure. She reports she has been in good health otherwise. She denies recent uri symptoms , hearing loss , nausea , vomiting , diarrhea. She also reports blurry vision mainly for far vision since 1 month , denies floaters , spots , flashes. Uses reading glasses at baseline , denies headache. Also has tingling / numbness in both feet since 1 year, denies focal weakness , difficulty swallowing or speech changes. Hospital Course & Plan Hospital Course & Plan: 76 y with h/o DVT with ivc filter (removed in 2014 ), hip fracture, bipolar disorder, presented to the hospital with dizziness and unsteady gait, c/f vestibular causes of her dizziness. Patient was found to have a chronic infarctin the left occipital lobe, started on aspirin and atorvastatin. Patient's dizziness persisted, however was able to walk with PT, who recommended outpatient PT for ongoing vestibular exercises. # dizziness vestibular testing in ED neg , possible orthostatic , but given persistent dizziness will need to r/o central vertigo CT head with subacute, small ischemic infarct in the left occipital lobe MRI brain with chronic infarct within left occipital lobe Orthostatic negative on 11/26 TTE on 11/27 showed normal LVEF, trace of mitral and tricuspid insufficiency, negative bubble study. A1c 5.9 - Neurology consulted, appreciate recs. Dizziness unlikely to be related to stroke seen on imaging. Recommend orthostatics, vestibular therapy. Would benefit from vestibular testing at [facility]. CM setting [facility] vestibular PT. - For chronic stroke, start aspirin 81 mg daily, atorvastatin 80 mg daily (LDL 81) [ ] TI: will likely in outpatient ziopatch once has PCP to f/u result of PCP # htn ( new diagnosis ) - Started on lisinopril 20mg daily # leukocytosis???resolved # diarrhea???improved new on 11/29, afebrile, VSS patient does report 1-2 days of watery diarrhea, however, reports no abd pain, cdiff negative - loperamide PRN # other medical conditions - no known home medications - will need to establish a pcp prior to discharge Time Spent Time Spent: Greater than 30 minutes in discharge planning and coordination of care Physical Exam Vital Signs: Vital Signs - 24 hr Temperature Pulse Rate Respiratory Rate Blood Pressure Blood Pressure Source O2 Sat by Pulse Oximetry 11/30/22 12:00 98.3 F 64 20 125/63 Automatic Cuff 97 11/30/22 08:00 98.2 F 66 18 146/60 Automatic Cuff 92 L 11/30/22 04:00 98.5 F 80 20 142/66 Automatic Cuff 96 11/30/22 00:00 99.0 F 66 20 157/59 L Automatic Cuff 99 11/29/22 19:45 99.0 F 73 18 147/55 L Automatic Cuff 95 Narrative: Gen: Alert, sitting in bed, calm, in no acute distress HEENT: NC/AT. Anicteric sclera. No conjunctival injection. EOMI. Pupils constrict from 3mm to 2mm to direct and consensual light. Moist oral mucous membranes. Neck supple. Resp: No tachypnea or increased WOB. LCTAB CV: Normal rate, regular rhythm. Clear S1 and S2. No m/r/g GI: Soft, non-distended, no tenderness to palpation, normoactive bowel sounds MSK: No lower extremity edema Neuro: Alert, fluent speech. CN II-XII intact. No nystagmus observed. 5/5 strength in upper and lower extremities. Finger to nose intact. Psych: Normal mood and affect Allergies Allergies Allergy/AdvReac Type Severity Reaction Status Date / Time meclizine [From Antivert] Allergy Unknown Verified 11/20/22 09:06 antihistamines Allergy Unknown Uncoded 11/25/22 00:26 Data Reviewed Findings: I have reviewed the relevant labs, radiology studies, tracings, medical records,and they are notable for Data: Results Pending Studies on Discharge?: No pending studies Pending Studies: None Contact Name: Jas Michele Laboratory Results: Laboratory Last Values WBC 7.5 10^3/uL (3.9-10.8) D 11/30/22 07:04 RBC 4.3 10^6/uL (4.2-5.6) 11/30/22 07:04 Hgb 13.3 g/dL (12.0-15.2) 11/30/22 07:04 Hct 40.5 % (35.0-45.0) 11/30/22 07:04 MCV 95.1 fL (82.0-102.0) 11/30/22 07:04 MCH 31.2 pg (25.6-33.2) 11/30/22 07:04 MCHC 32.8 g/dL (32.0-36.0) 11/30/22 07:04 RDW Std Deviation 46.8 fL (32.9-69.6) 11/30/22 07:04 RDW Coeff of Nathaniel 13.3 % (12.0-15.0) 11/30/22 07:04 Plt Count 263 10^3uL (150-400) 11/30/22 07:04 MPV 11.1 fL (8.5-13.0) 11/30/22 07:04 Neut % (Auto) 74.7 % (43.0-74.0) H D 11/26/22 06:18 Lymph % (Auto) 18.3 % (17.0-47.0) 11/26/22 06:18 Sandoval % (Auto) 5.4 % (5.0-12.0) 11/26/22 06:18 Eos % (Auto) 1.0 % (0.1-6.0) 11/26/22 06:18 Baso % (Auto) 0.4 % (0.0-2.0) 11/26/22 06:18 Abs Immat Gran (auto) 0.02 K/uL (0.00-0.66) 11/26/22 06:18 Absolute Neuts (auto) 6.1 10^3/uL (1.5-8.1) 11/26/22 06:18 Absolute Lymphs (auto) 1.5 10^3/uL (0.95-4.2) 11/26/22 06:18 Absolute Monos (auto) 0.4 10^3/uL (0.2-1.2) 11/26/22 06:18 Absolute Eos (auto) 0.1 10^3/uL (0.06-0.6) 11/26/22 06:18 Absolute Basos (auto) 0.0 10^3/uL (0.0-0.12) 11/26/22 06:18 Absolute Nucleated RBC 0.0 K/uL (0.00-0.2) 11/26/22 06:18 Nucleated RBC % (auto) 0.0 % (0.0-0.2) 11/26/22 06:18 Imm/Tot Granulo (auto) 0.2 % (0.001-5.0) 11/26/22 06:18 Sodium 141 mmol/L (136-145) 11/30/22 07:04 Potassium 4.3 mmol/L (3.5-5.1) 11/30/22 07:04 Chloride 108 mmol/L (98-107) H D 11/30/22 07:04 Carbon Dioxide 23 mmol/L (22-29) 11/30/22 07:04 Anion Gap 10 mmol/L (6-18) 11/30/22 07:04 BUN 14 mg/dL (6-20) 11/30/22 07:04 Creatinine 0.9 mg/dL (0.5-0.9) 11/30/22 07:04 GFR Calculation 65.84 11/30/22 07:04 Glucose 110 mg/dL (74-109) H 11/30/22 07:04 POC Glucose 165 mg/dL (70-115) 11/25/22 01:21 Hemoglobin A1c 5.9 % (4.2-5.8) H 11/26/22 06:18 Estim Average Glucose 123 mg/dL 11/26/22 06:18 Calcium 9.2 mg/dL (8.6-10.6) 11/30/22 07:04 Phosphorus 3.4 mg/dL (2.5-4.5) 11/30/22 07:04 Magnesium 2.0 mg/dL (1.6-2.6) 11/30/22 07:04 Total Bilirubin 0.5 mg/dL (0.4-1.2) 11/25/22 01:25 AST 13 IU/L (10-35) 11/25/22 01:25 ALT 15 U/L (5-33) 11/25/22 01:25 Alkaline Phosphatase 78 IU/L (35-104) 11/25/22 01:25 Troponin T < 0.01 ng/mL (0.0-0.01) 11/25/22 01:25 Total Protein 6.7 g/dL (6.6-8.7) 11/25/22 01:25 Albumin 3.9 g/dL (3.5-5.2) 11/25/22 01:25 Triglycerides 57 mg/dL (40-150) 11/26/22 06:18 Cholesterol 144 mg/dL (-200) 11/26/22 06:18 LDL Cholesterol, Calc 85 mg/dL (-130) 11/26/22 06:18 HDL Cholesterol 48 mg/dL (45-65) 11/26/22 06:18 LDL/HDL Ratio 1.8 11/26/22 06:18 Cholesterol/HDL Ratio 3.0 11/26/22 06:18 Vitamin B12 601.7 pg/mL (211-946) 11/25/22 01:25 TSH 3.83 uIU/mL (0.27-4.20) 11/25/22 01:25 C. difficile (PCR) Negative (Negative) 11/29/22 06:00 Discharge Plan Disposition & Referrals Patient Disposition: Home, Self-Care Referrals: Jas Michele MD [Primary Care Provider] - Discharge Order/Pg 1 Forms Discharge Order/Pg 1 Forms: Discharge Order (Routine); Ordered 11/30/22 Ordered By: Baljit Champagne Medications/Follow up Orders Discharge Medications: New lisinopril 20 mg Tablet 20 mg PO DAILY 30 Days Qty: 30 0RF aspirin 81 mg Tablet,Chewable 81 mg PO DAILY 30 Days Qty: 30 0RF atorvastatin [Lipitor] 40 mg Tablet 80 mg PO QPM 30 Days Qty: 60 0RF Continued multivitamin Tablet 1 tab PO DAILY Discharge Instructions Instruction Sheets: Lisinopril (By mouth), Aspirin (By mouth), Atorvastatin (By mouth), [facility] Health Related Social Needs (HRSN) Resource List, Dizziness (GEN), Dizziness (ED), Ischemic Stroke (DC) Care Plan Goals/Diet/Activity/Add'l Instructions: Dear Trey Dacosta, It was a pleasure taking part in your care here at [facility] [place]! Why was I admitted to the hospital? You were admitted for dizziness What was done for me while I was in the hospital?For your dizziness, extensive testings were done. This included CT scan and MRI scan of your. 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 You were seen and evaluated by the neurology team. It is thought that your dizziness is unlikely to be related to the stroke that was seen in the MRI of your brain. For your stroke, we checked other potential causes for having a stroke including your lipid panel, and an A1c (to see if you have diabetes). You were started on a cholesterol-lowering medication called atorvastatin. You are also started on baby aspirin for prevention of future stroke. - We also checked other potential causes of your dizziness including orthostasis (positional lightheadedness associated with low blood pressure) which was negative. You were seen and evaluated by the physical therapy team for vestibular exercises. You are recommended to continue these vestibular exercises with outpatient physical therapy sessions. ??? Your started on a blood pressure medication called lisinopril What should I do when I leave the hospital? - Please take all of your medications as prescribed. - Please schedule and establish care with a primary care physician at your earliest convenience. You will need to have a Zio patch (a rhythm monitor) to see whether you have paroxysmal atrial fibrillation (abnormal heart rhythm) that could cause a stroke. -While you are awaiting for appointment for outpatient physical therapy, you can look up vestibular exercises on the Internet to help minimize your symptoms. Sincerely, Your [facility] Team Work/School/AMA/Add'l Forms: Prescription Information Modified Cooper Scale Was the patient admitted with TIA/CVA symptoms?: No Documented By: Baljit Champagne MD 11/30/22 1613 Signed By: <Electronically signed by Baljit Champagne MD> 11/30/22 1623 Copies to: Discharge Summary Note Author Steff Arvizu [facility] November 30, 2022 4:40pm Note Date/Time November 30, 2022 4:40pm [address] [address] CM/SW Discharge Planning Note Patient: Trey Dacosta Attending MD: Baljit Champagne MD : 1945 Dictating Provider: Steff Arvizu RN Age/Sex: 76 / F Admit Date: 11/25/22 Discharge Date: MedRec #: [id number] Location: [facility] [id number] cc: * CM/SW Discharge Planning Note - Discharge Planning Notes Discharge Plan: D/c home today with Functional Therapy and Rehab for physical therapy. Anticipated date of discharge: 11/30/22 Community Services required at discharge: No Durable Medical Equipment Needed Upon Discharge: Walker (trial RW ) Discussed Discharge Plan with Patient/Family: Yes Transportation at time of discharge: Private Auto - Discharge Plan/Instructions Disposition: Home, Self-Care Referrals/Community Services: Jas Michele MD [Primary Care Provider] - Documented By: Steff Arvizu RN 11/30/22 1638 Signed By: <Electronically signed by Steff Arvizu RN> 11/30/22 1640 Copies to: History & Physical Note Author Estefania Jonas [facility] November 26, 2022 4:35am Note Date/Time November 25, 2022 4:13am [facility] _ [address] [place] [id number] ED Physician Report Signed Patient: Trey Dacosta Attending MD: Estefania Jonas MD : 1945 Dictating Provider: Collette Webb Age/Sex: 76 / F Visit Date: 11/25/22 Location: [facility] [id number] [facility] #: [id number] cc: Valentino Michele MD * HPI Prologue CC being evaluated: Dizziness History of Present Illness Narrative: 76-year-old presents for evaluation due to feeling unwell. She reports that fora few weeks and intermittent feeling of some issues with her balance, some mild blurred vision and feeling not quite right. No significant headaches, chest pain or abdominal pain. She was evaluated in urgent care last week where her work-up was negative including labs, UA, chest x-ray and viral testing. Reportsongoing intermittent symptoms that can last a few hours at a time. Reports thatshe feels unsteady on her feet at time. No other significant symptoms or complaints. ROS Constitutional: Absent Fever or Chills Head/Eyes: Absent Double Vision or Eye Pain ENT/Neck: Absent Nosebleed or Sore Throat Chest/Respiratory: Absent Cough or Dyspnea Cardiovascular: Absent Chest Pain or Syncope GI/Abdominal: Absent Abd Pain, Nausea, Vomiting or Diarrhea /Flank: Absent Hematuria or Dysuria MSK: Absent Back Pain, Neck Pain or Myalgias Skin: Absent Rash or Itch Neuro: Weakness and Other (Intermittent issues with steadiness/balance); Absent Headache or Numbness Heme/Lymph: Absent Bleeding or Bruising Allergic/Immunologic: Absent Facial Swelling or Itchy Eyes PMFSHx Reviewed in nurse's note: Past History, Medications, Allergies, Social History Past Medical History Pertinent Past Medical History: Hypertension Surgical History Pertinent Past Surgical History: Other Pertinent Past Surgical History Comment: right hip and right ankle fracture Home Medications Medication Instructions Recorded Confirmed multivitamin 1 tab PO DAILY 11/25/22 11/25/22 Allergies Allergy/AdvReac Type Severity Reaction Status Date / Time meclizine [From Antivert] Allergy Unknown Verified 11/20/22 09:06 antihistamines Allergy Unknown Uncoded 11/25/22 00:26 Social History Is the patient a current\former smoker or user of tobacco products?: No Travel within last 2 months: No Living Situation: Home Physical Exam Physical Exam Vital Signs: Initial Vital Signs Temp Pulse Resp BP Pulse Ox O2 Del Method 97.0 F L 64 18 173/70 H 98 Room Air 11/25/22 00:11/25/22 00:11/25/22 00:11/25/22 00:11/25/22 00:11/25/22 00:26 General: Alert and Well Developed HEENT: Lids Normal and Other (normocephalic, atraumatic) Neck: Supple, No Lymphadenopathy and Other (normal ROM) Respiratory: No Respiratory Distress, Chest non-tender and Other (equal chest rise, no stridor) Cardiovascular/Chest: RRR and Chest expanded Chest inspection: Normal inspectionand Symmetric chest wall rise Abdomen: Soft; Absent Tender Extremity: No edema and Normal equal pulses Neurological: Alert, Oriented X3, No Gross Weakness, Speech Normal, No Dysmetria, CNII-XII Normal, No Pronator Drift, 5/5 UE/LE Strength and Normal Sensation Skin: No rash, Warm and Dry Psychological: Mood/Affect Normal and Normal Memory/Judgment Data EKG Interpreted by me: Yes EKG Date: 11/25/22 Rate (bpm): 63 Rate: normal Rhythm: Sinus Rhythm Clayton: Normal Interval: A-V Block (1st deg) ST/T: Non-Specific ST Changes Laboratory 11/25/22 01:25 11/25/22 01:25 Lab Results: Lab Results 11/25/22 11/25/22 11/25/22 Range/Units 01:21 01:25 01:25 WBC 6.4 (3.9-10.8) 10^3/uL RBC 4.3 (4.2-5.6) 10^6/uL Hgb 13.3 (12.0-15.2) g/dL Hct 40.4 (35.0-45.0) % MCV 94.2 (82.0-102.0) fL MCH 31.0 (25.6-33.2) pg MCHC 32.9 (32.0-36.0) g/dL RDW Std Deviation 44.8 (32.9-69.6) fL RDW Coeff of Nahtaniel 13.0 (12.0-15.0) % Plt Count 233 (150-400) 10^3uL MPV 10.9 (8.5-13.0) fL Neut % (Auto) 63.6 (43.0-74.0) % Lymph % (Auto) 24.0 (17.0-47.0) % Sandoval % (Auto) 9.4 (5.0-12.0) % Eos % (Auto) 1.9 (0.1-6.0) % Baso % (Auto) 0.8 (0.0-2.0) % Abs Immat Gran (auto) 0.02 (0.00-0.66) K/uL Absolute Neuts (auto) 4.1 (1.5-8.1) 10^3/uL Absolute Lymphs (auto) 1.5 (0.95-4.2) 10^3/uL Absolute Monos (auto) 0.6 (0.2-1.2) 10^3/uL Absolute Eos (auto) 0.1 (0.06-0.6) 10^3/uL Absolute Basos (auto) 0.1 (0.0-0.12) 10^3/uL Absolute Nucleated RBC 0.0 (0.00-0.2) K/uL Nucleated RBC % (auto) 0.0 (0.0-0.2) % Imm/Tot Granulo (auto) 0.3 (0.001-5.0) % Sodium 139 (136-145) mmol/L Potassium 3.9 (3.5-5.1) mmol/L Chloride 101 (98-107) mmol/L Carbon Dioxide 29 (22-29) mmol/L Anion Gap 9 (6-18) mmol/L BUN 16 (6-20) mg/dL Creatinine 0.9 (0.5-0.9) mg/dL GFR Calculation 65.84 Glucose 148 H (74-109) mg/dL POC Glucose 165 (70-115) mg/dL Calcium 8.9 (8.6-10.6) mg/dL Phosphorus 2.8 (2.5-4.5) mg/dL Magnesium 2.1 (1.6-2.6) mg/dL Total Bilirubin 0.5 (0.4-1.2) mg/dL AST 13 (10-35) IU/L ALT 15 (5-33) U/L Alkaline Phosphatase 78 (35-104) IU/L Troponin T < 0.01 (0.0-0.01) ng/mL Total Protein 6.7 (6.6-8.7) g/dL Albumin 3.9 (3.5-5.2) g/dL Vitamin B12 601.7 (211-946) pg/mL TSH 3.83 (0.27-4.20) uIU/mL Radiology Narrative Narrative: Radiology Procedures 11/25/22 02:36 CT head/brain wo con Stat MDM MDM Narrative Medical Decision Makin-year-old female presents due to feeling off of her baseline over the past fewweeks including sometimes difficulty with her balance/gait. Reports some tingling and decreased sensation in her ankle/feet on both sides she does believe is new over the past few months. No significant headache, chest pain. Neuro exam nonfocal/without abnormalities. Did have a recent work-up including for infection including UA, chest x-ray and virus testing. This is all reassuring as were her electrolytes. Blood work is repeated today and remains reassuring occluding B12 and TSH. CT of the brain was performed given also reported some blurred vision. CT is reassuring. Will have pt evaluated by PT/CMin AM. Will need ongoing outpt w/u re: how she is feeling given UC and ED w/u without diagnosis. Signed out to morning MD with plan to follow-up physical therapy evaluation. Independent Interpretation of Studies Independent interpretation by me: EKG... (no acute abnormalities) Disposition Clinical Impression: Weakness, Dizziness Disposition: Signed Out to Condition: Stable Documented By: Estefania Jonas MD 11/25/22410 Signed By: <Electronically signed by Estefania Jonas MD> 11/26/22 0435 Transcribed By: Estefania Jonas MD 11/25/22410 History & Physical Note Author Mike Barrios [facility] November 25, 2022 9:28am Note Date/Time November 25, 2022 7:18am Cristy [facility] [address] ED Physician Report - Obs Signed Patient: Trey Dacosta Attending MD: Estefania Jonas MD : 1945 Dictating Provider: Collette Brown Age/Sex: 76 / F Visit Date: 11/25/22 Location: [facility] #: [id number] cc: No Primary Care Physician * ADDENDUM ED observation discharge note: Seen by physical therapy we discussed her case extensively, notably she is quitedizzy and unsteady when she gets up to walk and unsafe certainly for immediate discharge home. However none of the vestibular testing suggested a specific peripheral origin. E.g. Ripley-Hallpike etc. are all negative. Unclear exact source of her dizziness and unsteady gait at this juncture. She was slightly orthostatic but it does not fully explain her syndrome. I did review her CT head which showed no obvious bleed or stroke. Discussed options I think she should be admitted to the hospital for further work-up, not directly sent to rehab as it is unclear the source of her worseninggait and typically she lives alone at home. I placed a neurology consultation, perhaps she would benefit from an MRI of the brain. We will request admission for further care. Addendum Documented By: Mike Barrios MD 11/25/22927 Addendum Signed By: <Electronically signed by Mike Barrios MD> 11/25/22927 cc: No Primary Care Physician * __ HPI Admit to Observation Diagnosis: other (Unsteady Gait) Initial evaluation documented on Emergency Dept Record:: Yes History of Present Illness HPI Narrative: ED observation progress note ED day #1. Please see initial presentation for full details of the patient's condition, briefly she is a 76-year-old female whois weeks of feeling weak with some vague dizziness. She did have a fall 3 days ago. She went to urgent care due to increased feeling of dizziness. She had anEKG and blood work that was benign. She continued to feel unsteady on her feet. She had a negative COVID test as well. Here she did have CT imaging of the brain that showed no stroke no mass despite an extended period of symptoms. She had extensive laboratory work-up which is reassuring including electrolytes negative troponin testing normal thyroid testing normal vitamin B levels. However she failed bedside get up and go testing was felt unsafe for immediate discharge home so she was placed in ED observation for formal assessment by PT and case medical management ROS All systems: reviewed and negative except as stated PMFSHx Past Medical History Pertinent Past Medical History: Hypertension Surgical History Pertinent Past Surgical History: Other Pertinent Past Surgical History Comment: right hip and right ankle fracture Allergies Allergy/AdvReac Type Severity Reaction Status Date / Time meclizine [From Antivert] Allergy Unknown Verified 11/20/22 09:06 antihistamines Allergy Unknown Uncoded 11/25/22 00:26 Social History Is the patient a current\former smoker or user of tobacco products?: No Travel within last 2 months: No Exam Physical Exam Vital Signs: Vital Signs Temp Pulse Resp BP Pulse Ox O2 Del Method 98.1 F 69 16 162/73 H 97 Room Air 11/25/22 06:00 11/25/22 06:00 11/25/22 06:00 11/25/22 06:00 11/25/22 06:00 11/25/22 06:00 General: Alert and Well Developed HEENT: Normal ENT inspection and Normal Pharynx Neck: Supple and No Meningismus Resp: No Respiratory Distress and Normal Breath Sounds Cardiovascular: RRR and No murmur Extremity: No edema and Normal Equal pulses Neurological: Alert, Oriented X3, No Gross Weakness and Speech Normal Skin: No rash and No Petechiae Psychological: Depressed Data Laboratory 11/25/22 01:25 11/25/22 01:25 Lab Results: Lab Results 11/25/22 11/25/22 11/25/22 Range/Units 01:21 01:25 01:25 WBC 6.4 (3.9-10.8) 10^3/uL RBC 4.3 (4.2-5.6) 10^6/uL Hgb 13.3 (12.0-15.2) g/dL Hct 40.4 (35.0-45.0) % MCV 94.2 (82.0-102.0) fL MCH 31.0 (25.6-33.2) pg MCHC 32.9 (32.0-36.0) g/dL RDW Std Deviation 44.8 (32.9-69.6) fL RDW Coeff of Nathaniel 13.0 (12.0-15.0) % Plt Count 233 (150-400) 10^3uL MPV 10.9 (8.5-13.0) fL Neut % (Auto) 63.6 (43.0-74.0) % Lymph % (Auto) 24.0 (17.0-47.0) % Sandoval % (Auto) 9.4 (5.0-12.0) % Eos % (Auto) 1.9 (0.1-6.0) % Baso % (Auto) 0.8 (0.0-2.0) % Abs Immat Gran (auto) 0.02 (0.00-0.66) K/uL Absolute Neuts (auto) 4.1 (1.5-8.1) 10^3/uL Absolute Lymphs (auto) 1.5 (0.95-4.2) 10^3/uL Absolute Monos (auto) 0.6 (0.2-1.2) 10^3/uL Absolute Eos (auto) 0.1 (0.06-0.6) 10^3/uL Absolute Basos (auto) 0.1 (0.0-0.12) 10^3/uL Absolute Nucleated RBC 0.0 (0.00-0.2) K/uL Nucleated RBC % (auto) 0.0 (0.0-0.2) % Imm/Tot Granulo (auto) 0.3 (0.001-5.0) % Sodium 139 (136-145) mmol/L Potassium 3.9 (3.5-5.1) mmol/L Chloride 101 (98-107) mmol/L Carbon Dioxide 29 (22-29) mmol/L Anion Gap 9 (6-18) mmol/L BUN 16 (6-20) mg/dL Creatinine 0.9 (0.5-0.9) mg/dL GFR Calculation 65.84 Glucose 148 H (74-109) mg/dL POC Glucose 165 (70-115) mg/dL Calcium 8.9 (8.6-10.6) mg/dL Phosphorus 2.8 (2.5-4.5) mg/dL Magnesium 2.1 (1.6-2.6) mg/dL Total Bilirubin 0.5 (0.4-1.2) mg/dL AST 13 (10-35) IU/L ALT 15 (5-33) U/L Alkaline Phosphatase 78 (35-104) IU/L Troponin T < 0.01 (0.0-0.01) ng/mL Total Protein 6.7 (6.6-8.7) g/dL Albumin 3.9 (3.5-5.2) g/dL Vitamin B12 601.7 (211-946) pg/mL TSH 3.83 (0.27-4.20) uIU/mL Radiology Narrative Narrative: Radiology Procedures 11/25/22 02:36 CT head/brain wo con Stat MDM Medical Decision Making: We will attempt to confirm with pharmacy nursing staff and the patient at home medication list this morning so we can initiate her daily meds Awaiting formal PT and case management assessment for more detailed assessment of her gait weakness dizziness and safety at home, question need for acute rehabversus additional home services. We will reassess later today. Unsafe for discharge immediately needs to maintain ED observation at this juncture. Additional Information Old Records: Reviewed Discussed: Results, Dx and Follow-Up Disposition Clinical Impression: Weakness, Dizziness Disposition: Observation Condition: Stable Documented By: Mike Barrios MD 11/25/22 0718 Signed By: <Electronically signed by Mike Barrios MD> 11/25/22829 Transcribed By: Mike Barrios MD 11/25/22717 History & Physical Note Author Mayco Contreras [facility] November 25, 2022 8:47pm Note Date/Time November 25, 2022 10:09am [address] [address] Hospitalist History & Physical Patient: Trey Dacosta Attending MD: Mayoc Contreras MD : 1945 Dictating Provider: Mayco jacome MD Age/Sex: 76 / F Admit Date: 11/25/22 Discharge Date: MedRec #: [id number] Location: [facility] [id number] cc: Valentino Michele MD * ADDENDUM MRI showed Chronic infarct within the left occipital lobe , CTA -???No significant carotid or vertebral arterial pathology on either side. Also noted to have ???1 cm groundglass density nodule in the TAYLA, for which 6-12 month follow-up CT is recommended to assure stability/resolution.(patient will need to be updated in am ) ??? Cervical spondylosis with notable central canal and neural foraminal compromise, as described- follow up outpatient. Addendum Documented By: Mayco Contreras MD 11/25/222046 Addendum Signed By: <Electronically signed by Mayco Contreras MD> 11/25/222046 cc: Valentino Michele MD Copy To: __ H&P HPI Date: 11/25/22 Primary care physician: Physician No Primary Care Chief Concern: dizziness History of Present Illness History of Present Illness: 76 y with h/o DVT with ivc filter (removed in 2014 ), hip fracture , bipolar disorder ( per chart ) presented to the hospital with dizziness. Patient reports room spinning sensation especially when she gets up that since 1 month but progressively worse in the last 5 days with unsteady gait. She reports a mechanical fall 3 days ago but did not have headstrike or any injury or LOC. Shewent to the urgent care on 11/20 , had negative basic workup so sent home and she presented again today due to worsening symptoms. She doesnt have a primary care physician and is not taking any medications at home currently , so she is unaware of high blood pressure. She reports she has been in good health otherwise. She denies recent uri symptoms , hearing loss , nausea , vomiting , diarrhea. She also reports blurry vision mainly for far vision since 1 month , denies floaters , spots , flashes. Uses reading glasses at baseline , denies headache. Also has tingling / numbness in both feet since 1 year, denies focal weakness , difficulty swallowing or speech changes. PMFSHx Past Medical History: per HPI Functional capacity: Independent ADL Smoking Cessation Treatment Is the patient a current\former smoker or user of tobacco products?: No Home Medications & Allergies Home Medications Medication Instructions Recorded Confirmed Type No Known Home Medications 11/25/22 11/25/22 History Allergies Allergy/AdvReac Type Severity Reaction Status Date / Time meclizine [From Antivert] Allergy Unknown Verified 11/20/22 09:06 antihistamines Allergy Unknown Uncoded 11/25/22 00:26 Exam Physical Exam Vital signs: Vital Signs - Last Response Temperature Pulse Rate Respiratory Rate Blood Pressure Blood Pressure Source O2 Sat by Pulse Oximetry 98.1 F 69 16 162/73 H Automatic Cuff 97 11/25/22 06:00 11/25/22 06:00 11/25/22 06:00 11/25/22 06:00 11/25/22 06:00 11/25/22 06:00 General: Alert and No Apparent Distress CV: Heart Regular and No Murmur RESP: Lungs clear to auscultation with good air movement bilaterally GI: Soft and Non-Distended Extremities: No Pedal Edema Neuro: Alert and Oriented x3, Cranial nerve 2-12 intact, Speech Fluent, Moves all limbs, Sensation to light touch grossly intact throughout, No motor deficit and Other (Jing hallpike manuver negative at this time) Psych: Pleasant and appropriate affect Results Laboratory Laboratory Results: 11/25/22 01:25 11/25/22 01:25 Laboratory Results - Last 12 hours 11/25/22 01:21: POC Glucose 165 11/25/22 01:25: RBC 4.3, MCV 94.2, MCH 31.0, MCHC 32.9, RDW Std Deviation 44.8, RDW Coeff of Nathaniel 13.0, MPV 10.9, Neut % (Auto) 63.6, Lymph % (Auto) 24.0, Sandoval %(Auto) 9.4, Eos % (Auto) 1.9, Baso % (Auto) 0.8, Abs Immat Gran (auto) 0.02, Absolute Neuts (auto) 4.1, Absolute Lymphs (auto) 1.5, Absolute Monos (auto) 0.6, Absolute Eos (auto) 0.1, Absolute Basos (auto) 0.1, Absolute Nucleated RBC 0.0, Nucleated RBC % (auto) 0.0, Imm/Tot Granulo (auto) 0.3 11/25/22 01:25: Anion Gap 9, GFR Calculation 65.84, Calcium 8.9, Phosphorus 2.8,Magnesium 2.1, Total Bilirubin 0.5, AST 13, ALT 15, Alkaline Phosphatase 78, Troponin T < 0.01, Total Protein 6.7, Albumin 3.9, Vitamin B12 601.7, TSH 3.83 Assessment & Plan Assessment and Plan Assessment and Plan: 76 y with h/o DVT with ivc filter (removed in 2014 ), hip fracture , bipolar disorder ( per chart ) presented to the hospital with dizziness and unsteady gait. In the ED , vitals notable for BP-173/70, Labs grossly unremarkable. CT head did not show any acute abnormality. She did not received any meds in ED , she was observed in ED overnight with no improvement and now being admitted for further management. # dizziness - vestibular testing in ED neg , possible orthostatic , but given persistent dizziness will need to r/o central vertigo CT head - no acute abnormality but VRAD shows a remote infarct in occipital lobeand chronic microvascular changes ,pending formal report given high blood pressure and symptoms for a month , suspect a stroke 1 month ago vitamin b12 - within normal limits - admit to tele for 24 hours - given no hemorrhage and remote infarct , will give aspirin 81 mg , high dose atorvastatin 80 mg daily and no need for permissive hypertension given not a recent stroke - neurology consulted in ED , pending recs - follow MRI brain , CTA head/neck , echo , lipid panel , a1c - PT consult # htn ( new diagnosis ) - s/w lisinopril 5mg and titrate as needed # other medical conditions - no known home medications - will need to establish a pcp prior to discharge diet - heart healthy dvt ppx- lovenox code status -DNR/ DNI (confirmed with patient) dispo - pending neuro eval , PT eval Quality Measures Was the pt treated for stroke/TIA? (Y/N): Yes Quality: Stroke Was patient placed on an antithrombotic by day 2?: Yes Documented By: Mayco Contreras MD 11/25/22 1007 Signed By: <Electronically signed by Mayco Contreras MD> 11/25/22 1107 Copies to: History & Physical Note Author Leanne Dempsey [facility] November 25, 2022 3:40pm Note Date/Time November 25, 2022 2:59pm [address] [address] PT Evaluation Patient: Trey Dacosta Attending MD: Inpatient Provider,Carlton : 1945 Dictating Provider: Leanne Dempsey,PT 240 69 Age/Sex: 76 / F Admit Date: 11/25/22 Discharge Date: MedRec #: [id number] Location: [facility] [id number] cc: * History of Present Illness Date of Initial Evaluation: 11/25/22 Time Seen: 09:30 Total Time Spent with Patient: 23min Date of admission: 11/25/22 PPE for Special Flu Droplet/Contact precautions maintained?: No PPE Items Worn: Gloves, Surgical Mask Reasons for Therapy: Safety Assmt for Home Present Illness: Pt is a 76yo F who presented to the ED with ongoing dizziness for approx 1mo, reporting worsening within past week with gait instability. Head CT(-). Primary Language: [place] Subjective: Pt received supine in bed, agreeable to PT Work History/Leisure Activity: PT reporting lives home alone. Elevator access. Baseline ind no AD. Drives. Ind all ADLs Lives Where: Apartment Lives With: Alone - Prior Functional Level Bed Mobility: Independent Transfers: Independent Ambulation: Independent - Cognition/Perception Follow Commands: Yes Orientation: Person, Place, Time, Situation Memory: Intact Motivation: Good Past History of Falls: Yes (last week, mechanical ) Safety Awareness: Good Vision: Intact Speech: Intact Hearing: Intact - Vitals Supplemental O2: No Vitals: supine 167/81 Standing 131/68 Lab Values Reviewed: Yes Radiology Results Reviewed: Report - Pain Pain at Rest (0-10): 0 Pain with Activity (0-10): 0 - Strength Strength: WFL: Strength LLE, Strength RLE Reason For Visit: DIZZY, UNSTEADY GAIT Current Functional Status - Bed Mobility Supine to Sit: Supervised Sit to Supine: Supervised - Transfers Sit to Stand: Close Supervision Stand to Sit: Close Supervision - Ambulation Device/Bracing Used: None Ambulation on Level Surfaces: Close Supervision (amb approx 20ftx2, no AD, at times deviating from baseline ) - Balance Sitting Static: Good + Sitting Dynamic: Good + Standing Static: Good - Standing Dynamic: Fair + - Vestibular Vestibular Screen: Denies spinning sensation Constant Dizziness/gait instability - increased with movement however improves upon resting in one position Blurred Vision R ear fullness Denied hearing loss/ringing Denied recent infection Describes 1 episode of vertigo approx 6mo ago - eye moving very fast, unable toadjust No resting nystagmus Saccade/Smooth Pursuit WNL Head Thrust (-) Supine Roll (-) Horizontal BPPV [place] (-) Posterior BPPV - Safety Checks Safety Checks: Phone within reach, Call Corona within reach Modified Vilma Scale Is this patient on the Stroke Protocol?: No Plan of Care Problems: Gait Limitation, Impaired Balance Assessment: Vestibular assessment overall (-). Pt reporting constant dizziness, worsening over past week. Upon assessment of gait, noted with deviation of straight path. no AD. Pt reporting lives home alone, drives and ind with with ADL's. MD updated. plan for pt to be admitted for MRI and neuro consult. PT will reassess on 11/26 to determine safe d/c plan - Goals Patient will perform Bed Mobility: Independently Pt will perform all OOB Transfers: Independently Pt will ambulate on level surfaces: Independently - Plan of Care Plan of Care: Continue POC Treatment(s) Recommended: Bed Mobility Training, Transfer Training, Gait Training, Coordination/Balance, Therapeutic Exercise, Safety Training, Patient/Caregiver Education, Home Exercise Program Mobility Recommendations: OOB for all meals, Ambulate in addition to therapy sessions (CS with amb ) Rehabilitation Potential: Good Frequency: 5-6/Week Education Provided To: Patient Education Provided: Impairments/Functional Deficits, Plan of Care, Recommendations Education Methods: Verbal Goals/Treatment discussed and in agreement with: Patient DME Recommended: Walker (trial RW ) Therapist's Recommendation for Discharge: Outpatient PT (? need for vestibular therapy ) Jovany Vo Moderate Complexity: Yes Documented By: [place] [id number] 11/25/22 1454 Signed By: <Electronically signed by PT Leanne Dempsey [id number]> 11/25/22 1540 Copies to: History & Physical Note Author Steff Arvizu [facility] November 25, 2022 3:45pm Note Date/Time November 25, 2022 3:44pm [place] [id number] CM/SW Initial Assessment Patient: Trey Dacosta Attending MD: Inpatient Provider,Carlton : 1945 Dictating Provider: Steff Arvizu RN Age/Sex: 76 / F Admit Date: 11/25/22 [facility]: [id number] Location: [facility] [id number] cc: * CM/SW Initial Assessment - General History Provided By: Patient, Medical Record Primary Care Physician Confirmed: Yes (Patient with no PCP - provided list of PCP's ) Language barriers: No Preferred Pharmacy Confirmed: Yes ([facility] [email or web address] in [place] ) - Current Living Situation Living Situation: Home Living Arrangements: Alone Physical Barriers in Home Environment: Elevator Assistive Devices: Glasses Medical Equipment Use at Home: None - Family Situation/Support System Marital Status: Has patient ever served in the ?: No - ADL's Bathing Ability: Independent Eating (Feeding) Ability: Independent Toileting Ability: Independent Mobility/Gait/Transfer: Independent Shopping Ability: Shops Independently Does patient currently drive: Yes Medication Management: Independent - Current Services Were community services in place prior to admission: No - Anticipated Discharge Plan Anticipated Discharge Plan: CM met with patient at the bedside. Patient lives alone in [address] in [place]. Patient independent with no services prior to admission. Patient with noPCP. Patient provided a listing of PCP's for review. Patient to have PT evaluation. Discharge plan pnd PT recommendation. CM will follow for dischargeplanning. - Initial Assessment Completed Assessment Completed: Yes Documented By: Steff Arvizu RN 11/25/22 1539 Signed By: <Electronically signed by Steff Arvizu RN> 11/25/22 1545 Copies to: History & Physical Note Author Cristy Cm [facility] November 26, 2022 11:22am Note Date/Time November 26, 2022 11:21am [address] [address] Clinical Swallow Evaluation Patient: Trey Dacosta Attending MD: Gina Ott MD : 1945 Dictating Provider: Cristy Cm MS, CCS- CMA OR LPN [id number] Age/Sex: 76 / F Admit Date: 11/25/22 Discharge Date: MedRec #: [id number] Location: [facility] [id number] cc: * Clinical Swallow Evaluation Date: 11/26/22 Time: 11:15 Length of Treatment: 60 Primary Language: [place] [employer] Required: No Current Diet: Regular, Thin Diet Prior to Admission: Regular, Thin Pertinent PMH: Pt is a 76yo F who presented to the ED with ongoing dizziness for approx 1mo, reporting worsening within past week with gait instability. Head CT(-). Brain MRI revealed chronic infarct left occipital lobe. Pertinent Diagnostic Findings: Brain MRI IMPRESSION: 1. No acute intracranial abnormality. 2. 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 HCT IMPRESSION: 1. Findings most consistent with a subacute, small, ischemic infarct in the left occipital lobe. MRI provide more definitive assessment. 2. Mild chronic small vessel ischemic changes. .CTA Head/Neck IMPRESSION: 1. No significant carotid or vertebral arterial pathology on either side. 2. 1 cm groundglass density nodule in the TAYLA, for which 6-12 month follow-up CT is recommended to assure stability/resolution. 3. Cervical spondylosis with notable central canal and neural foraminal compromise, as described. Reason for Consult: swallow eval triggered per stroke protocol Pain Intensity (0-10): 0 Patient Positioning: Upright in bed Rehab Precautions: Fall Risk PPE for Special Flu Droplet/Contact precautions maintained?: No PPE Items Worn: Gloves, Surgical Mask - Cognition/Perception Follow Commands: Yes Orientation: Person, Place, Time, Situation Memory: Intact Motivation: Good Safety Awareness: Good Vision: Intact Speech/Language: Intact Hearing: Intact - Oral Motor Labial: Adequate Lingual: Adequate Velum: Adequate Volitional Cough: Present Volitional Dry Swallow: Present Secretion Management: Adequate Face Symmetrical: Yes Dentition: Intact Trach: No Speech Intelligibility: WNL - Texture Presentation Regular: WFL Thin: WFL Vocal Quality - Before Swallowing: WNL Vocal Quality - After Swallowing: WNL - Assessment Assessment: Pt presents with adequate oropharyngeal swallowing mechanism with no overt s/s dysphagia, in the setting of acute dizziness. Pt found to have an old stroke onMRI of indeterminate age. Pt tolerated po trials of regular solids and thin liquids via cup without overt s/s aspiration or difficulty. Pt denies nausea orvomiting due to dizziness. She denies unitentional weight loss. Pt is A&Ox4. Speech is fluent. No changes in expressive or receptive language observed at the conversational level. Pt is recommended to continue on her baseline diet. No further CMA OR LPN services indicated at this time. - Goals Treatment Provided: eval only Education Provided To: Patient, Caregiver (dtr present for eval.) Frequency: Discharged - Recommendations Feeding: Oral Diet Recommendations: Regular, Thin Medications: Whole With (water) Supervision Level: Independent Strategies: Fully Upright During all PO Therapist's Recommendation for Discharge: No Speech Therapy Intervention Recommended Reason For Visit: DIZZY, UNSTEADY GAIT Billing Clinical Eval Swallowing Function: Yes Documented By: Cristy Cm MS, CCS-CMA OR LPN [id number] 11/26/22 1115 Signed By: <Electronically signed by CCS-CMA OR LPN Cristy Cm, [id number]> 11/26/22 1122 Copies to: Progress Note Author Jennifer Grimaldo [facility] November 26, 2022 10:48am Note Date/Time November 25, 2022 3:05pm [place] [id number] Nutrition Leveling Patient: Trey Dacosta Attending MD: Gina Ott MD : 1945 Dictating Provider: Cheri Valle Age/Sex: 76 / F Admit Date: 11/25/22 Discharge Date: MedRec #: [id number] Location: [facility] [id number] cc: * Leveling Assessment - Leveling Level: 3 Inital Date: 12/02/22 Documented By: Cheri Valle 11/25/22 1505 Signed By: <Electronically signed by Cheri Valle> 11/25/22 1505 <Electronically signed by TRISH Grimaldo> 11/26/22 1048 Copies to: Progress Note Author Steff Arvizu [facility] November 25, 2022 3:39pm Note Date/Time November 25, 2022 3:37pm [address] [address] CM LACE Tool Patient: Trey Dacosta [facility] 1945 Dictating Provider: Steff Arvizu RN Age/Sex: 76 / F Admit Date: 11/25/22 Discharge Date: MedRec #: [id number] Location: [facility] [id number] cc: * LACE Tool - LACE Index Scoring Tool Length of Stay (Anticipated): 1 Day Acute Admission: No Comorbidity: No prior history Emergency Dept. Visits (In past 6 Months): 2 visits - LACE Score LACE Index Score: 3 Probability of a Problem: 5 Risk of Readmission: Low Risk Documented By: Steff Arvizu RN 11/25/22 1535 Signed By: <Electronically signed by Steff Arvizu RN> 11/25/22 1539 Copies to: Progress Note Author Daniela Dobbins [facility] November 26, 2022 11:41am Note Date/Time November 26, 2022 11:41am [address] [address] OT Hold Note Patient: Phyllis,Trey Attending MD: Gina Ott MD : 1945 Dictating Provider: Daniela Dobbins OT 7 921 Age/Sex: 76 / F Admit Date: 11/25/22 Discharge Date: MedRec #: [id number] Location: [place] [id number] cc: * OT Communication Note Date: 11/26/22 OT Communication: Pt is independent with ADL tasks. Only complaint is dizziness. No skilled OT indicated at this time. OT order discontinued. Documented By: Daniela Dobbins OT [id number] 11/26/22 1140 Signed By: <Electronically signed by OT Daniela Dobbins [id number]> 11/26/22 1141 Copies to: Progress Note Author Leanne Dempsey [facility] November 26, 2022 5:34pm Note Date/Time November 26, 2022 5:34pm [place] [address] PT Daily Note Patient: Trey Dacosta Attending MD: Gina Ott MD : 1945 Dictating Provider: Leanne Dempsey PT 240 69 Age/Sex: 76 / F Admit Date: 11/25/22 Discharge Date: MedRec #: [id number] Location: [place] [address] cc: [place] [id number] * PT Treatment Note Date: 11/26/22 Time Seen: 16:45 Date of admission: 11/25/22 Rehab Precautions: Fall Risk PPE for Special Flu Droplet/Contact precautions maintained?: No Length of Treatment: 8min Education Provided To: Patient Education Provided On: Impairments/Functional Deficits, Recommendations Education Methods: Verbal - Subjective Subjective: Pt received supine in bed, agreeable to PT - Vitals Supplemental O2: No - Functional Status Supine to Sit: Independent Sit to Supine: Independent Sit to Stand: Modified Independent, Assistive Device Device/Bracing Used: None Ambulation on Level Surfaces: Supervised (amb approx 300ft with RW, overall remained steady ), Assistive Device - Treatment Provided Treatment Activities: Gait Training - Safety Checks Safety Checks: Bed Alarm Activated, Phone within reach, Call Corona within reach - Assessment Assessment: Pt cont to report dizziness with movement. No nystagmus noted. Trialed RW with PT. Overall gait remained steady. Pt reporting improved stability. Plan to cont to progress amb and determine need for RW upon d/c home. Pt would benefit from OP PT to further address balance/dizziness. PT will cont to follow - Plan Plan of Care: Continue POC Therapist's Recommendation for Discharge: Outpatient PT (FTR for vestibular/balance) Reason For Visit: DIZZY, UNSTEADY GAIT Modified Cooper Scale Is this patient on the Stroke Protocol?: No Billing Gait Training (1st unit): Yes Documented By: [place] [id number] 11/26/22 1730 Signed By: <Electronically signed by PT Leanne Dempsey [id number]> 11/26/22 1734 Copies to: Progress Note Author Gina Ott [facility] November 26, 2022 7:45pm Note Date/Time November 26, 2022 7:34pm [address] [id number] Hospitalist Progress Note Patient: PhyllisTrey Attending MD: Gina Ott MD : 1945 Dictating Provider: Gina Ott MD Age/Sex: 76 / F Admit Date: 11/25/22 Discharge Date: MedRec #: [id number] Location: [facility] [id number] cc: * Subjective Subjective Date: 11/26/22 Interval Events: Patient reports that she still has dizziness. It can wax and wane randomly. Sometimes she is sitting still and will feel very dizzy. She has some blurred vision but denies having double vision. She has not been having headache. She feels very dizzy when she tries to walk. She denies having any pain, nausea, vomiting, and shortness of breath. Review of Systems Review of Systems All systems: As per HPI, 10 point ROS completed & negative except where noted below Exam Physical Exam Vital signs: Vital Signs - Last Response Temperature Pulse Rate Respiratory Rate Blood Pressure Blood Pressure Source O2 Sat by Pulse Oximetry 98.4 F 58 L 18 153/60 Automatic Cuff 97 11/26/22 16:00 11/26/22 16:00 11/26/22 16:00 11/26/22 16:00 11/26/22 16:11/26/22 16:00 Physical Exam Narrative: Gen: Alert, sitting in bed, calm, in no acute distress HEENT: NC/AT. Anicteric sclera. No conjunctival injection. Pupils constrict [id number] to 2mm to direct and consensual light. Moist oral mucous membranes. Neck supple. Resp: No tachypnea or increased WOB. LCTAB CV: Normal rate, regular rhythm. Clear S1 and S2. No m/r/g GI: Soft, non-distended, no tenderness to palpation, normoactive bowel sounds MSK: No lower extremity edema Neuro: Alert, fluent speech. CN II-XII intact. Pt reports blurred vision when looking to the left but does not have any nystagmus. 5/5 strength in upper and lower extremities. Finger to nose and heel to leon intact. Psych: Normal mood and affect Medications Active Medications Acetaminophen (Acetaminophen 325 Mg Tablet) 650 mg PO Q6H PRN PRN Reason: Temp>101.5 &/or Pain Score:1-3 Aspirin (Aspirin Chewable 81 Mg Tablet) 81 mg PO DAILY [facility] Last Admin: 11/26/22 10:00 Dose: 81 mg Atorvastatin Calcium (Atorvastatin 40 Mg Tablet) 80 mg PO QPM [facility] Last Admin: 11/25/22 10:56 Dose: 80 mg Enoxaparin Sodium (Enoxaparin 40 Mg/0.4 Ml Syringe) 40 mg SUB-Q Q24H [facility] Last Admin: 11/26/22 10:00 Dose: 40 mg Lisinopril (Lisinopril 5 Mg Tablet) 5 mg PO DAILY [facility]; Protocol Last Admin: 11/26/22 10:00 Dose: 5 mg Magnesium Hydroxide (Magnesium Hydroxide 30 Ml Udc) 30 ml PO DAILY PRN PRN Reason: Constipation Step 2 Melatonin (Melatonin 5 Mg Tablet) 5 mg PO HS PRN PRN Reason: Insomnia Last Admin: 11/26/22 01:14 Dose: 5 mg Polyethylene Glycol (Polyethylene Glycol 3350 17 Gm Packet) 17 gm PO DAILY PRN PRN Reason: Constipation Step 1 Results Laboratory Laboratory Results: 11/26/22 06:18 11/26/22 06:18 Laboratory Results - Last 12 hours 11/26/22 06:18: Anion Gap 10, GFR Calculation 75.84, Calcium 9.0, Phosphorus 2.6, Magnesium 2.0, Triglycerides 57, Cholesterol 144, LDL Cholesterol, Calc 85,HDL Cholesterol 48, LDL/HDL Ratio 1.8, Cholesterol/HDL Ratio 3.0 Progress Note - A&P Assessment and Plan Assessment and Plan: 76 y with h/o DVT with ivc filter (removed in 2014 ), hip fracture , bipolar disorder ( per chart ) presented to the hospital with dizziness and unsteady gait. In the ED , vitals notable for BP-173/70, Labs grossly unremarkable. CT head did not show any acute abnormality. She did not received any meds in ED , she was observed in ED overnight with no improvement and now being admitted for further management. # dizziness - vestibular testing in ED neg , possible orthostatic , but given persistent dizziness will need to r/o central vertigo CT head with subacute, small ischemic infarct in the left occipital lobe MRI brain with chronic infarct within left occipital lobe - Neurology consulted, appreciate recs. Dizziness unlikely to be related to stroke seen on imaging. Recommend orthostatics, vestibular therapy. Would benefit from vestibular testing at [facility] - For chronic stroke, start aspirin 81 mg daily, atorvastatin 80 mg daily (LDL 81) - A1c pending - PT consult - TTE bubble study ordered. If ready for discharge, will get outpatient TTE instead. Patient will need 2 week event monitor as outpatient - Keep on telemetry # htn ( new diagnosis ) - s/w lisinopril 5mg and titrate as needed # other medical conditions - no known home medications - will need to establish a pcp prior to discharge diet - heart healthy dvt ppx- lovenox code status -DNR/ DNI dispo - PT eval Time Spent Also discussed with: Patient, Nursing, Case Management team and Tabulating Clerk Anticipated Discharge Priority for D/C: Additional Options: PT Quality Measures Was the pt treated for stroke/TIA? (Y/N): Yes Quality: Stroke Was patient placed on an antithrombotic by day 2?: Yes Documented By: Gina Ott MD 11/26/221932 Signed By: <Electronically signed by Gina Ott MD> 11/26/221944 Copies to: Progress Note Author Leanne Dempsey [facility] November 27, 2022 6:03pm Note Date/Time November 27, 2022 6:03pm [address] [address] PT Daily Note Patient: PhyllisTrey Attending MD: Gina Ott MD : 1945 Dictating Provider: Leanne Dempsey PT 240 [id number] Age/Sex: 76 / F Admit Date: 11/25/22 Discharge [facility]: [facility] #: [id number] Location: [place] [id number] cc: [place] [id number] * PT Treatment Note Date: 11/27/22 Time Seen: 15:14 Date of admission: 11/25/22 Rehab Precautions: Fall Risk PPE for Special Flu Droplet/Contact precautions maintained?: No Length of Treatment: 28min Education Methods: Verbal - Subjective Subjective: Pt received supine in bed, agreeable to PT. Reporting now worsening of dizzinesshowever no improvement - Vitals Supplemental O2: No - Objective Objective: VORx1 - Head turn to R/neutral x5, head turn to L/neutral x5 - Functional Status Supine to Sit: Independent Sit to Supine: Independent Sit to Stand: Modified Independent, Assistive Device Device/Bracing Used: None Ambulation on Level Surfaces: Modified Independent (amb approx 300ft with RW, steady gait, no deviation from straigh path, navigating obstacles appropriately ), Assistive Device - Treatment Provided Treatment Activities: Gait Training - Safety Checks Safety Checks: Phone within reach, Call Corona within reach - Assessment Assessment: Pt cont to report dizziness. Despite report, cont to demo steady gait with RW. Amb approx 300ft. Initiated VOR exercises, overall tolerated well, encouraged totrial 2-3 more times in evening. PT will reassess on 11/28. Discussed option of svcs vs vestibular home PT, pt to think about decision. Plan to issue RW prior tod/c - Plan Plan of Care: Continue POC Frequency: 5-6/Week Therapist's Recommendation for Discharge: Home with Services, Outpatient PT (FTRfor vestibular/balance) Reason For Visit: DIZZY, UNSTEADY GAIT Modified Vilma Scale Is this patient on the Stroke Protocol?: No Billing Gait Training (1st unit): Yes Gait Training (2nd unit): Yes Documented By: [place] [id number] 11/27/22 1758 Signed By: <Electronically signed by PT Leanne Dempsey [id number]> 11/27/22 1803 Copies to: Progress Note Author Gina Ott [facility] November 27, 2022 8:03pm Note Date/Time November 27, 2022 8:04pm [address] [address] Hospitalist Progress Note Patient: Trey Dacosta Attending MD: Gina Ott MD : 1945 Dictating Provider: Gina Ott MD Age/Sex: 76 / F Admit Date: 11/25/22 Discharge Date: [facility] #: [id number] Location: [facility] [id number] cc: * Subjective Subjective Date: 11/27/22 Interval Events: Patient reports that she still feels dizzy at rest and with movement. Her visioncan be blurry. She denies headache, double vision, nausea, vomiting, SOB, and pain. Review of Systems Review of Systems All systems: As per HPI, 10 point ROS completed & negative except where noted below Exam Physical Exam Vital signs: Vital Signs - Last Response Temperature Pulse Rate Respiratory Rate Blood Pressure Blood Pressure Source O2 Sat by Pulse Oximetry 98.3 F 67 18 131/65 Automatic Cuff 97 11/27/22 16:00 11/27/22 16:00 11/27/22 16:00 11/27/22 16:00 11/27/22 16:00 11/27/22 16:00 Physical Exam Narrative: Gen: Alert, sitting in bed, calm, in no acute distress HEENT: NC/AT. Anicteric sclera. No conjunctival injection. EOMI. Pupils constrict from 3mm to 2mm to direct and consensual light. Moist oral mucous membranes. Neck supple. Resp: No tachypnea or increased WOB. LCTAB CV: Normal rate, regular rhythm. Clear S1 and S2. No m/r/g GI: Soft, non-distended, no tenderness to palpation, normoactive bowel sounds MSK: No lower extremity edema Neuro: Alert, fluent speech. CN II-XII intact. No nystagmus observed. 5/5 strength in upper and lower extremities. Finger to nose intact. Psych: Normal mood and affect Medications Active Medications Acetaminophen (Acetaminophen 325 Mg Tablet) 650 mg PO Q6H PRN PRN Reason: Temp>101.5 &/or Pain Score:1-3 Aspirin (Aspirin Chewable 81 Mg Tablet) 81 mg PO DAILY [facility] Last Admin: 11/27/22 09:03 Dose: 81 mg Atorvastatin Calcium (Atorvastatin 40 Mg Tablet) 80 mg PO QPM [facility] Last Admin: 11/26/22 20:06 Dose: 80 mg Enoxaparin Sodium (Enoxaparin 40 Mg/0.4 Ml Syringe) 40 mg SUB-Q Q24H [facility] Last Admin: 11/27/22 09:42 Dose: 40 mg Lisinopril (Lisinopril 10 Mg Tablet) 10 mg PO DAILY [facility]; Protocol Last Admin: 11/27/22 09:02 Dose: 10 mg Magnesium Hydroxide (Magnesium Hydroxide 30 Ml Udc) 30 ml PO DAILY PRN PRN Reason: Constipation Step 2 Melatonin (Melatonin 5 Mg Tablet) 5 mg PO HS PRN PRN Reason: Insomnia Last Admin: 11/26/22 01:14 Dose: 5 mg Polyethylene Glycol (Polyethylene Glycol 3350 17 Gm Packet) 17 gm PO DAILY PRN PRN Reason: Constipation Step 1 Results Laboratory Laboratory Results: 11/27/22 07:52 11/27/22 07:52 Laboratory Results - Last 12 hours 11/26/22 06:18: Hemoglobin A1c 5.9 H, Estim Average Glucose 123 11/27/22 07:52: RBC 4.3, MCV 95.2, MCH 30.9, MCHC 32.4, RDW Std Deviation 46.1, RDW Coeff of Nathaniel 13.0, MPV 10.7 11/27/22 07:52: Anion Gap 9, GFR Calculation 89.02, Calcium 8.6 Progress Note - A&P Assessment and Plan Assessment and Plan: 76 y with h/o DVT with ivc filter (removed in 2014 ), hip fracture , bipolar disorder ( per chart ) presented to the hospital with dizziness and unsteady gait. In the ED , vitals notable for BP-173/70, Labs grossly unremarkable. CT head did not show any acute abnormality. She did not received any meds in ED , she was observed in ED overnight with no improvement and now being admitted for further management. # dizziness - vestibular testing in ED neg , possible orthostatic , but given persistent dizziness will need to r/o central vertigo CT head with subacute, small ischemic infarct in the left occipital lobe MRI brain with chronic infarct within left occipital lobe - Neurology consulted, appreciate recs. Dizziness unlikely to be related to stroke seen on imaging. Recommend orthostatics, vestibular therapy. Would benefit from vestibular testing at [facility]. [facility]. - For chronic stroke, start aspirin 81 mg daily, atorvastatin 80 mg daily (LDL 81) - A1c 5.9 - PT consulted, recommend home with services - TTE bubble study ordered. If ready for discharge, will get outpatient TTE instead. Patient will need 2 week event monitor as outpatient - Keep on telemetry # htn ( new diagnosis ) - Started on lisinopril, increase dose to 10 mg daily # other medical conditions - no known home medications - will need to establish a pcp prior to discharge diet - heart healthy dvt ppx- lovenox code status -DNR/ DNI dispo - plan to dc home with home vestibular PT Discharge within 24 hours: Yes Time Spent Also discussed with: Patient, Nursing, Family/guardian and Case Management team Anticipated Discharge Priority for D/C: Additional Options: PT Quality Measures Was the pt treated for stroke/TIA? (Y/N): Yes Quality: Stroke Was patient placed on an antithrombotic by day 2?: Yes Documented By: Gina Ott MD 11/27/221956 Signed By: <Electronically signed by Gina Ott MD> 11/27/222002 Copies to: Progress Note Author Miriam Abbott [facility] November 28, 2022 3:16pm Note Date/Time November 28, 2022 2:24pm [place] [id number] PT Daily Note Patient: Trey Dacosta Attending MD: Baljit Champagne MD : 1945 Dictating Provider: Miriam Abbott,PT 2 [id number] Age/Sex: 76 / F Admit Date: 11/25/22 Discharge Date: MedRec #: [id number] Location: [facility] [id number] cc: Miriam Abbott,PT [id number] * PT Treatment Note Date: 11/28/22 Time Seen: 13:10 Date of admission: 11/25/22 Rehab Precautions: Safety PPE Items Worn: Gloves Length of Treatment: 24 Education Provided To: Patient, Nursing, MD Education Provided On: Impairments/Functional Deficits, Plan of Care, Recommendations, Home Exercise Education Methods: Verbal, Written Displays Understanding: Explains Independently, Verbalizes Understanding - Subjective Subjective: Pt received in bed, pleasantly agreed to PT. Reporting dizziness remains unchanged. - Objective Objective: VOR x 1 in unsupported sitting at EOB: -Horizontal 3 x 1 min -Vertical 2 x 1 min ~2 min of rest in between bouts - Functional Status Supine to Sit: Independent Sit to Supine: Independent Sit to Stand: Modified Independent, Assistive Device (RW) Device/Bracing Used: Rolling Walker Ambulation on Level Surfaces: Modified Independent (amb approx 300ft with RW, steady gait, no deviation from straigh path, navigating obstacles appropriately ) - Safety Checks Safety Checks: Phone within reach, Call Corona within reach - Assessment Assessment: Pt had good participation in PT. Continues to demonstrate Ind/Mod Ind mobility, ambulating on unit with steady gait. No LOB or reports of increased dizziness with head turns. Worked on VOR x 1 exercise in both horizontal and vertical planes, tolerated well. Extensive education on performing HEP at home and handout provided for guidance. Discussed recommendation for home PT initially with progression to FTR for focused vestibular rehab, pt in agreement with plan. Issued RW for d/c. Per MD, tentative d/c home tomorrow. Will check in next week if d/c delayed. - Plan Plan of Care: Modify POC Frequency: 1-2/Week Therapist's Recommendation for Discharge: Home with Services Reason For Visit: DIZZY, UNSTEADY GAIT Modified Cooper Scale Is this patient on the Stroke Protocol?: No Billing Gait Training (1st unit): Yes (9) Neuromuscular Reeducation (1st unit): Yes (15) Documented By: Miriam AbbottPT [id number] 11/28/22 1419 Signed By: <Electronically signed by PT Miriam Abbott, [id number]> 11/28/22 1516 Copies to: Progress Note Author Baljit Champagne [facility] November 28, 2022 3:11pm Note Date/Time November 28, 2022 3:03pm [address] [address] Hospitalist Progress Note Patient: Trey Dacosta Attending MD: Baljit Champagne MD : 1945 Dictating Provider: Baljit Champagne MD Age/Sex: 76 / F Admit Date: 11/25/22 Discharge Date: MedRec #: [id number] Location: [place] [id number] cc: * Subjective Subjective Date: 11/28/22 Interval Events: still reports being dizzy this morning, doesn't feel ready to go home Exam Physical Exam Vital signs: Vital Signs - Last Response Temperature Pulse Rate Respiratory Rate Blood Pressure Blood Pressure Source O2 Sat by Pulse Oximetry 98.1 F 68 18 148/58 L Automatic Cuff 96 11/28/22 08:00 11/28/22 12:00 11/28/22 12:00 11/28/22 12:00 11/28/22 12:00 11/28/22 12:00 Physical Exam Narrative: Gen: Alert, sitting in bed, calm, in no acute distress HEENT: NC/AT. Anicteric sclera. No conjunctival injection. EOMI. Pupils constrict from 3mm to 2mm to direct and consensual light. Moist oral mucous membranes. Neck supple. Resp: No tachypnea or increased WOB. LCTAB CV: Normal rate, regular rhythm. Clear S1 and S2. No m/r/g GI: Soft, non-distended, no tenderness to palpation, normoactive bowel sounds MSK: No lower extremity edema Neuro: Alert, fluent speech. CN II-XII intact. No nystagmus observed. 5/5 strength in upper and lower extremities. Finger to nose intact. Psych: Normal mood and affect Medications Active Medications Acetaminophen (Acetaminophen 325 Mg Tablet) 650 mg PO Q6H PRN PRN Reason: Temp>101.5 &/or Pain Score:1-3 Last Admin: 11/27/22 22:05 Dose: 650 mg Aspirin (Aspirin Chewable 81 Mg Tablet) 81 mg PO DAILY [facility] Last Admin: 11/28/22 08:40 Dose: 81 mg Atorvastatin Calcium (Atorvastatin 40 Mg Tablet) 80 mg PO QPM [facility] Last Admin: 11/27/22 22:07 Dose: 80 mg Enoxaparin Sodium (Enoxaparin 40 Mg/0.4 Ml Syringe) 40 mg SUB-Q Q24H [facility] Last Admin: 11/28/22 09:45 Dose: 40 mg Lisinopril (Lisinopril 20 Mg Tablet) 20 mg PO DAILY [facility]; Protocol Last Admin: 11/28/22 09:41 Dose: Not Given Magnesium Hydroxide (Magnesium Hydroxide 30 Ml Udc) 30 ml PO DAILY PRN PRN Reason: Constipation Step 2 Melatonin (Melatonin 5 Mg Tablet) 5 mg PO HS PRN PRN Reason: Insomnia Last Admin: 11/26/22 01:14 Dose: 5 mg Polyethylene Glycol (Polyethylene Glycol 3350 17 Gm Packet) 17 gm PO DAILY PRN PRN Reason: Constipation Step 1 Scopolamine (Scopolamine 1 Mg Patch) 1 mg TRANSDERMA Q72H [facility] Last Admin: 11/28/22 10:09 Dose: 1 mg Results Laboratory Laboratory Results: 11/28/22 07:05 11/28/22 07:08 Laboratory Results - Last 12 hours 11/28/22 07:05: RBC 4.0 L, MCV 94.5, MCH 31.0, MCHC 32.8, RDW Std Deviation 46.2, RDW Coeff of Nathaniel 13.2, MPV 11.3 11/28/22 07:08: Anion Gap 11, GFR Calculation 75.84, Calcium 8.5 L Progress Note - A&P Assessment and Plan Assessment and Plan: 76 y with h/o DVT with ivc filter (removed in 2014 ), hip fracture, bipolar disorder, presented to the hospital with dizziness and unsteady gait, c/f vestibular causes of her dizziness. # dizziness vestibular testing in ED neg , possible orthostatic , but given persistent dizziness will need to r/o central vertigo CT head with subacute, small ischemic infarct in the left occipital lobe MRI brain with chronic infarct within left occipital lobe Orthostatic negative on 11/26 TTE on 11/27 showed normal LVEF, trace of mitral and tricuspid insufficiency, negative bubble study. - Neurology consulted, appreciate recs. Dizziness unlikely to be related to stroke seen on imaging. Recommend orthostatics, vestibular therapy. Would benefit from vestibular testing at [facility]. CM setting [place] vestibular PT. - For chronic stroke, start aspirin 81 mg daily, atorvastatin 80 mg daily (LDL 81) - A1c 5.9 - PT consulted, recommend home with services - Keep on telemetry [ ] TI: will likely in outpatient ziopatch once has PCP to f/u result of PCP # htn ( new diagnosis ) - Started on lisinopril 20mg daily # other medical conditions - no known home medications - will need to establish a pcp prior to discharge diet - heart healthy dvt ppx- lovenox code status -DNR/ DNI dispo - plan to dc home with home vestibular PT Anticipated Discharge Priority for D/C: Additional Options: PT Quality Measures Was the pt treated for stroke/TIA? (Y/N): Yes Quality: Stroke Was patient placed on an antithrombotic by day 2?: Yes Documented By: Baljit Champagne MD 11/28/22 1455 Signed By: <Electronically signed by Baljit Champagne MD> 11/28/22 1511 Copies to: Progress Note Author Baljit Champagne [facility] November 29, 2022 4:27pm Note Date/Time November 29, 2022 4:17pm [place] [id number] Hospitalist Progress Note Patient: Trey Dacosta Attending MD: Baljit Champagne MD : 1945 Dictating Provider: Baljit Champagne MD Age/Sex: 76 / F Admit Date: 11/25/22 Discharge Date: MedRec #: [id number] Location: [facility] [id number] cc: * Subjective Subjective Date: 11/29/22 Interval Events: reports she has been having watery diarrhea for the past 2 hours, but no abd pain. c diff sent overnight which is negative still has ongoing dizziness Exam Physical Exam Vital signs: Vital Signs - Last Response Temperature Pulse Rate Respiratory Rate Blood Pressure Blood Pressure Source O2 Sat by Pulse Oximetry 97.8 F 84 18 126/94 H Automatic Cuff 96 11/29/22 15:48 11/29/22 15:48 11/29/22 15:48 11/29/22 15:48 11/29/22 15:48 11/29/22 15:48 Physical Exam Narrative: Gen: Alert, sitting in bed, calm, in no acute distress HEENT: NC/AT. Anicteric sclera. No conjunctival injection. EOMI. Pupils constrict from 3mm to 2mm to direct and consensual light. Moist oral mucous membranes. Neck supple. Resp: No tachypnea or increased WOB. LCTAB CV: Normal rate, regular rhythm. Clear S1 and S2. No m/r/g GI: Soft, non-distended, no tenderness to palpation, normoactive bowel sounds MSK: No lower extremity edema Neuro: Alert, fluent speech. CN II-XII intact. No nystagmus observed. 5/5 strength in upper and lower extremities. Finger to nose intact. Psych: Normal mood and affect Medications Active Medications Acetaminophen (Acetaminophen 325 Mg Tablet) 650 mg PO Q6H PRN PRN Reason: Temp>101.5 &/or Pain Score:1-3 Last Admin: 11/27/22 22:05 Dose: 650 mg Aspirin (Aspirin Chewable 81 Mg Tablet) 81 mg PO DAILY [facility] Last Admin: 11/29/22 08:54 Dose: 81 mg Atorvastatin Calcium (Atorvastatin 40 Mg Tablet) 80 mg PO QPM [facility] Last Admin: 11/28/22 21:52 Dose: 80 mg Enoxaparin Sodium (Enoxaparin 40 Mg/0.4 Ml Syringe) 40 mg SUB-Q Q24H [facility] Last Admin: 11/29/22 09:58 Dose: 40 mg Lisinopril (Lisinopril 20 Mg Tablet) 20 mg PO DAILY [facility]; Protocol Last Admin: 11/29/22 08:54 Dose: 20 mg Loperamide HCl (Loperamide 2 Mg Capsule) 2 mg PO TID [facility] Last Admin: 11/29/22 15:03 Dose: 2 mg Magnesium Hydroxide (Magnesium Hydroxide 30 Ml Udc) 30 ml PO DAILY PRN PRN Reason: Constipation Step 2 Melatonin (Melatonin 5 Mg Tablet) 5 mg PO HS PRN PRN Reason: Insomnia Last Admin: 11/26/22 01:14 Dose: 5 mg Polyethylene Glycol (Polyethylene Glycol 3350 17 Gm Packet) 17 gm PO DAILY PRN PRN Reason: Constipation Step 1 Scopolamine (Scopolamine 1 Mg Patch) 1 mg TRANSDERMA Q72H [facility] Last Admin: 11/28/22 10:09 Dose: 1 mg Results Laboratory Laboratory Results: 11/29/22 07:06 11/28/22 07:08 Laboratory Results - Last 12 hours 11/29/22 06:00: C. difficile (PCR) Negative 11/29/22 07:06: RBC 4.6, MCV 96.1, MCH 31.0, MCHC 32.3, RDW Std Deviation 47.5, RDW Coeff of Nathaniel 13.3, MPV 11.2 11/29/22 07:06: Phosphorus 3.3 D, Magnesium 1.9 Progress Note - A&P Assessment and Plan Assessment and Plan: 76 y with h/o DVT with ivc filter (removed in 2014 ), hip fracture, bipolar disorder, presented to the hospital with dizziness and unsteady gait, c/f vestibular causes of her dizziness. # dizziness vestibular testing in ED neg , possible orthostatic , but given persistent dizziness will need to r/o central vertigo CT head with subacute, small ischemic infarct in the left occipital lobe MRI brain with chronic infarct within left occipital lobe Orthostatic negative on 11/26 TTE on 11/27 showed normal LVEF, trace of mitral and tricuspid insufficiency, negative bubble study. A1c 5.9 - Neurology consulted, appreciate recs. Dizziness unlikely to be related to stroke seen on imaging. Recommend orthostatics, vestibular therapy. Would benefit from vestibular testing at [facility]. CM setting [facility] vestibular PT. - For chronic stroke, start aspirin 81 mg daily, atorvastatin 80 mg daily (LDL 81) - PT consulted, recommend home with services - Keep on telemetry given e/o of chronic infarct [ ] TI: will likely in outpatient ziopatch once has PCP to f/u result of PCP # htn ( new diagnosis ) - Started on lisinopril 20mg daily # leukocytosis # diarrhea new on 11/29, afebrile, VSS patient does report 1-2 days of watery diarrhea, however, reports no abd pain, cdiff negative - loperamide PRN - trend CBC # other medical conditions - no known home medications - will need to establish a pcp prior to discharge diet - heart healthy dvt ppx- lovenox code status -DNR/ DNI dispo - plan to dc home with home vestibular PT Anticipated Discharge Priority for D/C: Additional Options: PT Quality Measures Was the pt treated for stroke/TIA? (Y/N): Yes Quality: Stroke Was patient placed on an antithrombotic by day 2?: Yes Documented By: Baljit Champagne MD 11/29/22 1611 Signed By: <Electronically signed by Baljit Champagne MD> 11/29/22 3882 Copies to: Progress Note Author Steff Arvizu [facility] November 30, 2022 4:47pm Note Date/Time November 30, 2022 4:46pm [facility] [address] [place] [address] Progress Note Patient: PhyllisTrey Attending MD: Baljit Champagne MD : 1945 Dictating Provider: Steff Arvizu RN Age/Sex: 76 / F Admit Date: 11/25/22 Discharge Date: MedRec #: [id number] Location: [facility] [id number] cc: * Case Management Progress Note - Progress Note CM Progress Note: Patient discussed in IDR. Plan was for discharge to home with services through [facility]. Patient however has not established with a PCP. had previously provided information/listing of possible PCP providers. This CM met with patientand daughter and strongly encouraged patient to establish with a PCP. Plan is for discharge to home with [facility] home. to provide script for physical therapy to patient. discharge summary and paperwork faxed to [facility]. CM met with patient and patient's daughter at the bedside who are aware and in agreement with discharge to home today with [facility]. Estimated Discharge Assessment - Anticipated Discharge Disposition: Home, Self-Care Referrals/Community Services: Jas Michele MD [Primary Care Provider] - Documented By: Steff Arvizu RN 11/30/22 1640 Signed By: <Electronically signed by Steff Arvizu RN> 11/30/22 2255 Copies to:
[2023-06-14 21:33] VITALS: BP 161/70; PULSE 78; RESP 18; TEMP 36.2; O2SAT 100
[2023-06-14 22:00] VITALS: BMI 28.0
[2023-06-15] MEDS: Ibuprofen 600 MG TABLET PO (05:26)
--- NOTE | 2023-06-15 07:01 | PC.ADMIT ---
pt is a 77years old female with past medical hx of bipolar disorder, HTN, CKD 2 and lower extremity swelling, who presented as a hospital to hospital transfer for Bipolar d/o with Betsy. pt had reported to [facility] with initial complaints of worsening bilateral LLE edema and increasing worsening agitation. Pt arrived to unit at 21:33 on stretcher, signed a CV. pt is alert and oriented x3, pleasantly confused and forgetful. pt is calm and pleasant upon approach but gets angry easily when talking about her daughter and whom according to pt, thinks she is behind her getting admitted to the psych unit, per pt, she stated my daughter thinks she can control my life, she never visited me while I was at the hospital, she even refused to have me watch her dog when she went on vacation, she rather hired a stranger to do that. I know there is something wrong but she is not telling me anything. I think she needs the help not me . Pt denied all psych symptoms, reports being safe on unit. Skin safety check completed. pt reported right hip to knee pain, that goes down to her legs. pt refused to take ordered prn Tylenol and stated I am not taking that medicine because that killed my pt requested for ibuprofen and recieved 600mg po this morning. VSS. pt has bilateral LLE, with left worse than right, pt is on lasix 20mg daily. med. rec completed/provider notified. hospitalist consulted for H&P. PT on 5mins check for safety. pt is DNR/DNI. pt appeared to have slept all night.
[2023-06-15 08:00] VITALS: BP 131/70; PULSE 70; RESP 18; TEMP 36.3; O2SAT 96
[2023-06-15 08:13] LABS: Creatinine Clr Calc Pharmacy 50.6; Estimated Glomerular Filt Rate > 60
[2023-06-15 08:14] LABS: Estimated Average Glucose 117 mg/dL; Hemoglobin A1c % 5.7 % (<6.0)
[2023-06-15 08:16] LABS: Alanine Aminotransferase 18 U/L (0-31); Albumin Level 3.6 g/dL (3.5-5.0); Alkaline Phosphatase 65 U/L (39-117); Anion Gap 12 (12-20); Aspartate Amino Transferase 18 U/L (5-31); Bilirubin Total 0.4 mg/dL (0.0-1.0); Blood Urea Nitrogen 21 mg/dL (9-16); Calcium 8.9 mg/dL (8.4-10.2); Carbon Dioxide 24 mmol/L (22-29); Chloride 107 mmol/L (96-108); Cholesterol 165 mg/dL (<200); Creatinine Clr Calc Pharmacy 52.4; Estimated Glomerular Filt Rate > 60; Glucose Fasting 107 mg/dL (60-99); HDL Cholesterol 44 mg/dL (>40); LDL Cholesterol Calculated 113 mg/dL (<100); Sodium 139 mmol/L (135-145); Total Protein 6.5 g/dL (6.5-8.0); Triglycerides 41 mg/dL (<150)
[2023-06-15] MEDS: Furosemide 20 MG TABLET PO (08:57)
[2023-06-15] MEDS: Divalproex Sodium 250 MG TABLET.DR PO ×2 (08:57→21:04)
[2023-06-15] MEDS: metFORMIN HCl ER 500 MG TAB.ER.24H PO (08:57)
[2023-06-15] MEDS: Gabapentin 100 MG CAPSULE 200 MG PO ×3 (08:57→21:04)
[2023-06-15] MEDS: OLANZapine 2.5 MG TABLET PO (08:57)
[2023-06-15] MEDS: Multivitamin TABLET 1 TAB PO (08:57)
[2023-06-15] MEDS: Losartan Potassium 50 MG TABLET PO (08:57)
--- NOTE | 2023-06-15 09:00 | ECG_ITS ---
Test Reason : qtc check Blood Pressure : / mmHG Vent. Rate : 071 BPM Atrial Rate : 071 BPM P-R Int : 228 ms QRS Dur : 078 ms QT Int : 406 ms P-R-T Axes : 063 025 038 degrees QTc Int : 441 ms Sinus rhythm with 1st degree A-V block Otherwise normal ECG No previous ECGs available Referred By: Chris Begum Electronically Signed By:Vince Lake
--- NOTE | 2023-06-15 09:24 | HO.PM.IMCN ---
History of Present Illness Data of Consult Service Date: 06/15/23 Requesting physician: Jeancarlos Ewing Primary Care Provider: Smita JENSEN Reason for consult: medical management 69-year-old female with history of hypertension, [id number] type 2 diabetes, CKD stage 2, bipolar disorder admitted to Geriatric Psychiatry from [facility] with consult placed hospitalist service for medical H&P. The patient is refusing examination at the time of visit. There does not appear to be any acute medical issues. Hematology studies while in the ED revealed a normocytic anemia with H/H 10.6/32.6. Renal function baseline, electrolyte levels normal. EKG performed this morning shows sinus rhythm with first-degree AV chin block without any ST/T-wave abnormality. Review of Systems Review of Systems: Yes Other (pt refuses exam) [facility] Medical History Bipolar disorder CKD (chronic kidney disease), stage II Diabetes HTN (hypertension) Social History Household Members: None Housing: Apartment Do you presently have visiting nurse or other home services: Yes Patient Tobacco Use Status: Never used Tobacco Smoked in Last 30 Days: No e-Cigarette/Vaping Use: Never Used Use of substances other than those prescribed or required for medical reasons: No Currently Displaying Signs/Symptoms of Drug Intoxication Withdrawal: No Have you been hit, kicked, punched, or otherwise hurt by someone within the past year? If so, by whom?: No Do you feel safe in your current relationship?: No Current Relationship Are you made to feel afraid or neglected: Yes ( per pt, my daughter neglects me ) Spiritual Healthcare Practices: n/a [facility] Practices: gnosticism Cultural Healthcare Practices: n/a Advance Directives: No Advance Directives Information Provided: No Do you have thoughts of harming others: None Do you have a plan to hurt others: No Plan Recently lost weight without trying: No Eating poorly because of decreased appetite: No Nutrition Risks: No Nutritional Risk Patient : No : No Poor oral hygiene: No Meds Allergies Allergy/AdvReac Type Severity Reaction Status Date / Time meclizine Allergy Unknown Verified 06/14/23 21:55 antihistamine Allergy Unknown Uncoded 06/14/23 21:55 Active Medications: Current Medications Acetaminophen (Acetaminophen 325 Mg Tablet) 650 mg PO Q6H PRN PRN Reason: Headache/Pain Mild Scale (1-3) Al Hydroxide/Mg Hydroxide (Magnesium Hydrox/Alum Hydrox 30 Ml Oral.Susp) 30 ml PO Q6H PRN PRN Reason: Heartburn/Nausea Clotrimazole (Clotrimazole 1 % Cream 15 Gm Tube) 1 appl TOPICAL TID [facility] Divalproex Sodium (Divalproex Sodium 250 Mg Tablet.Dr) 250 mg PO BID [facility] Last Admin: 06/15/23 08:57 Dose: 250 mg Furosemide (Furosemide 20 Mg Tablet) 20 mg PO DAILY [facility] Last Admin: 06/15/23 08:57 Dose: 20 mg Gabapentin (Gabapentin 100 Mg Capsule) 200 mg PO TID [facility] Last Admin: 06/15/23 08:57 Dose: 200 mg Ibuprofen (Ibuprofen 600 Mg Tablet) 600 mg PO Q6H PRN PRN Reason: Pain, Moderate(Pain Scale 4-6) Last Admin: 06/15/23 05:26 Dose: 600 mg Lidocaine (Lidocaine 4 % Patch Adh..Patch) 1 patch TRANSDERMA DAILY [facility] Last Admin: 06/15/23 09:00 Dose: Not Given Losartan Potassium (Losartan Potassium 50 Mg Tablet) 50 mg PO DAILY [facility] Last Admin: 06/15/23 08:57 Dose: 50 mg Magnesium Hydroxide (Milk Of Magnesia 30 Ml Oral.Susp) 30 ml PO DAILY PRN PRN Reason: Constipation Metformin HCl (Metformin Hcl Er 500 Mg Tab.Er.24h) 500 mg PO DAILY [facility] Last Admin: 06/15/23 08:57 Dose: 500 mg Multivitamins/Vitamin C (Multivitamin Tablet) 1 tab PO DAILY [facility] Last Admin: 06/15/23 08:57 Dose: 1 tab Nicotine Polacrilex (Nicotine Polacrilex 2 Mg Gum) 4 mg BUCCAL Q2H PRN PRN Reason: Nicotine Cravings Non-Formulary Medication (Vitamin B-12) 50 mcg PO DAILY [facility] Olanzapine (Olanzapine 5 Mg Tablet) 5 mg PO TID PRN PRN Reason: agitation Olanzapine (Olanzapine 2.5 Mg Tablet) 2.5 mg PO DAILY [facility] Last Admin: 06/15/23 08:57 Dose: 2.5 mg Olanzapine (Olanzapine 5 Mg Tablet) 7.5 mg PO BEDTIME RUT Trazodone HCl (Trazodone Hcl 50 Mg Tablet) 50 mg PO BEDTIME MRX1 PRN PRN Reason: Insomnia Home Medications ?Medication ?Instructions ?Recorded ?Confirmed ?Last Taken ?Type Vitamin B-12 50 mcg PO DAILY 06/14/23 06/15/23 06/14/23 History Zyprexa 2.5 mg PO DAILY 06/14/23 06/15/23 06/14/23 History Zyprexa 7.5 mg PO BEDTIME 06/14/23 06/15/23 06/13/23 History divalproex 250 mg PO BID 06/14/23 06/14/23 06/14/23 History furosemide 20 mg PO DAILY 06/14/23 06/15/23 06/14/23 History gabapentin 200 mg PO TID 06/14/23 06/15/23 Unknown History lidocaine 1 applic topical DAILY 06/14/23 06/15/23 Unknown History losartan 50 mg PO DAILY 06/14/23 06/15/23 06/14/23 History metformin 500 mg PO DAILY 06/14/23 06/15/23 Unknown History miconazole 1 applic topical TID 06/14/23 06/15/23 Unknown History multivitamin 1 tab PO DAILY 06/14/23 06/15/23 06/14/23 History Physical Exam Vital Signs and Narrative: Vital Signs: Last Vital Signs Temp 97.2 F 06/14/23 21:33 Pulse 78 06/14/23 21:33 Resp 18 06/14/23 21:33 BP 161/70 H 06/14/23 21:33 Pulse Ox 100 06/14/23 21:33 O2 Del Method Room Air 06/14/23 21:33 BMI result Body Mass Index 28.0 Constitutional - Awake and Alert, No apparent distress Pt refuses remainder of exam Results Labs 06/15/23 07:36 Labs: Laboratory Results - last 24 hr 06/15/23 06/15/23 06/15/23 07:36 07:36 07:36 Anion Gap 12 Estim Creat Clear Calc 52.4 50.6 Estimated GFR > 60 > 60 Fasting Glucose 107 H Estimat Average Glucose 117 Hemoglobin A1c % 5.7 Calcium 8.9 Total Bilirubin 0.4 AST 18 ALT 18 Alkaline Phosphatase 65 Total Protein 6.5 Albumin 3.6 Triglycerides 41 Cholesterol 165 LDL Cholesterol, Calc 113 H HDL Cholesterol 44 Assessment and Plan (1) Routine medical exam: Status: Acute Plan 69-year-old female with history of hypertension, ewa-reurumv-nykxuuvcm type 2 diabetes, CKD stage 2, bipolar disorder admitted to Geriatric Psychiatry from [facility] with consult placed hospitalist service for medical H&P. #Bipolar disorder -plan per psychiatry #HTN -continue losartan and Lasix # controlled yqy-[id number]-[id number] type 2 diabetes -hemoglobin A1c 5.7% -diabetic diet if patient tolerates. Check POC glucose every morning -continue metformin # CKD stage 2 -renal function baseline Thank you for allowing me to participate in this consult. Signing off at this time. Please do not hesitate to call for further questions or for any acute medical issues that should arise
--- NOTE | 2023-06-15 11:03 | P.HPPS_ITS ---
[facility] Date of Service: 06/15/23 Chief Complaint: Bipolar d/o, current episode manic w/out psy. feat Sources of Information: patient interviewed, chart reviewed and crisis/core team assessment reviewed [facility] Subjective Notes: Shane Warning, Conditional Voluntary and 3 Day Narrative: The patient is a 69-year-old female, , mother of an adult daughter living alone referred from the emergency room of another hospital out of our catchment area for psychosis and disorganized behavior. The patient was initially referred to hospital due to medical issues and later on transferred to a rehab facility but she was brought back to the emergency room due to agitation and disorganized behavior. She was initially medically workout, crisis assessed her and transferring to this facility for continuation of care. The patient carries a diagnosis of bipolar disorder and apparently she had been more disruptive with episodes of agitation the needed chemical restraint. Once she was medically cleared she was transferred here for continuation of care. On intake, the patient reported the patient had been living alone by herself she stated that her daughter wants to put her away and she was the person who called 911. She minimized any psychiatric symptoms stated that she does not have any psychiatric problem that she thinks that she had a TIA and that is why she can not remember what exactly happened it. At the moment of the interview on intake, the patient adamantly denies active suicidal or homicidal thoughts she had flight of ideas and was over inclusive. She wanted to be discharged as soon as possible since signed a 3 day notice. She understood shane warning. Past Psychiatric History: The patient denies prior psychiatric condition but according to the chart she carries a diagnosis of bipolar disorder. Apparently she was admitted psychiatrically 3 years ago as per patient's report. Medical Evaluation Reviewed: Yes [facility] Medical History (Updated 06/15/23 @ 16:53 by Jeancarlos Ewing) Bipolar disorder CKD (chronic kidney disease), stage II Diabetes HTN (hypertension) Family History: Denies Social History: The patient is do youngest of 2 children her milestones were achieved at expected age and she was raised by her parents. 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 She was when she was 20 and she is currently . She has a 57-year-old daughter who is single and who does not get along well with her Substance History: Denies Trauma History: Denies Diagnostics Vital Signs (24Hr): Vital Signs - 24 hr 06/14/23 21:33 06/15/23 08:00 Temperature 97.2 F 97.4 F Pulse Rate 78 70 Respiratory Rate 18 18 Blood Pressure 161/70 H 131/70 Pulse Oximetry 100 96 Oxygen Delivery Method Room Air Room Air BMI result Body Mass Index 28.0 Labs 06/15/23 07:36 Labs: Laboratory Results - last 48 hr 06/15/23 06/15/23 06/15/23 07:36 07:36 07:36 Sodium 139 Potassium 4.0 Chloride 107 Carbon Dioxide 24 Anion Gap 12 BUN 21 H Creatinine 0.84 0.87 Estim Creat Clear Calc 52.4 50.6 Estimated GFR > 60 Fasting Glucose Estimat Average Glucose Hemoglobin A1c % Calcium Total Bilirubin AST ALT Alkaline Phosphatase Total Protein Albumin Triglycerides Cholesterol LDL Cholesterol, Calc HDL Cholesterol 06/15/23 07:36 Sodium Potassium Chloride Carbon Dioxide Anion Gap BUN Creatinine Estim Creat Clear Calc Estimated GFR > 60 Fasting Glucose 107 H Estimat Average Glucose 117 Hemoglobin A1c % 5.7 Calcium 8.9 Total Bilirubin 0.4 AST 18 ALT 18 Alkaline Phosphatase 65 Total Protein 6.5 Albumin 3.6 Triglycerides 41 Cholesterol 165 LDL Cholesterol, Calc 113 H HDL Cholesterol 44 Meds/Allergies Meds Home Medications ?Medication ?Instructions ?Recorded ?Confirmed ?Type Vitamin B-12 50 mcg PO DAILY 06/14/23 06/15/23 History Zyprexa 2.5 mg PO DAILY 06/14/23 06/15/23 History Zyprexa 7.5 mg PO BEDTIME 06/14/23 06/15/23 History divalproex 250 mg PO BID 06/14/23 06/14/23 History furosemide 20 mg PO DAILY 06/14/23 06/15/23 History gabapentin 200 mg PO TID 06/14/23 06/15/23 History lidocaine 1 applic topical DAILY 06/14/23 06/15/23 History losartan 50 mg PO DAILY 06/14/23 06/15/23 History metformin 500 mg PO DAILY 06/14/23 06/15/23 History miconazole 1 applic topical TID 06/14/23 06/15/23 History multivitamin 1 tab PO DAILY 06/14/23 06/15/23 History Allergies Allergies Allergy/AdvReac Type Severity Reaction Status Date / Time meclizine Allergy Unknown Verified 06/14/23 21:55 antihistamine Allergy Unknown Uncoded 06/14/23 21:55 Mental Status Exam Mental Status Exam Patient Appearance: Well Grooomed and Appropriate Patient Orientation: Person and Situation Level of Consciousness: Awake and Appropriate Patient Behavior: Guarded and Passive Mood Description: Withdrawn Affect Description: Constricted and Labile Patient Cognition Impaired: Yes Ability to Follow Directions: Good Speech Pattern: Clear, Spontaneous Speech and Rapid Hallucinations: None Delusions: Grandiose and Ideas of Reference Thought Process: Racing Thought Content: positive for [place] and positive for Perseveration Judgement: Poor Assessment & Plan Assessment & Plan (1) Bipolar disorder: Status: Acute Code(s): F31.9 - Bipolar disorder, unspecified Plan The patient is elderly female with a past history of bipolar disorder who was brought to another hospital due to exacerbation of psychosis elicited by increased agitation flight of ideas and irritability. The patient is a very poor historian but apparently she carries a diagnosis of bipolar disorder and she was poorly compliant probably in the community. Plan 1. Gather collateral information we will try to contact her family and get more information. 2. We will continue with a regular medications started in the hospital with Depakote and Zyprexa. 3. Reassessment with results, continue medical workout. 4. Continue 15 minutes checks. 5. The patient signed a conditional voluntary and later a 3 day notice since she wants to get discharged as soon as possible. Patient educated on: diagnosis Reason for continued inpatient stay Substantial Risk for: inability to function, rapid decompensation and med/psych decompensation Statement Statement: I have reviewed the history and physical and performed a pertinent examination on my patient. No changes have occurred unless specified. If the History and Physical was not performed prior to admission, the Hospitalist's service will be consulted for completing the admission physical. Time Spent With Patient Time: Total time managing care of this patient today __45__ minutes.
--- NOTE | 2023-06-15 18:51 | PC.NURSE ---
Bilateral lower edema noted hospitalist consult ordered
[2023-06-15 19:30] VITALS: BP 121/60; PULSE 55; RESP 18; O2SAT 99
[2023-06-15] MEDS: OLANZapine 5 MG TABLET 7.5 MG PO (21:04)
[2023-06-16] MEDS: Ibuprofen 600 MG TABLET PO ×2 (04:19→20:35)
[2023-06-16 08:00] VITALS: BP 127/62; PULSE 79; RESP 18; TEMP 36.1; O2SAT 99
--- NOTE | 2023-06-16 09:04 | P.EN_ITS ---
Event Note Date of Service: 06/16/23 Event Note: 77-year-old female with history of hypertension, bwo-cljewzx-ngkiqyggd type 2 diabetes, CKD stage 2, bipolar disorder admitted to Geriatric Psychiatry from [facility] with consult placed hospitalist service with consult placed to hospitalist service for evaluation of ble edema. Pt is aggitated and history could not be obtained as patient again refused to go to exam room, or private area, to discuss history in a HIPAA compliant manner. Pt is demanding an ultrasound. On exam, there is 1+ ble pitting edema with swelling extending to the calves. There is very faint erythema of the distal third of the lower legs bilaterally extending to the dorsum of the feet bilaterally without significant warmth. No open or draining areas. No claudication. 2+ pedal pulses. Feet are appropriately warm and well perfused. A/P: Patient with ble of unclear duration and etiology. Suspect component of venous insuffiency and dependent edema. No evidence of cellulitis or infection. -Check venous duplex ble to r/o dvt- low suspicion -Recommend compression stockings, ambulation, leg elevation, and low sodium diet if patient agreeable -outpt follow up Will continue following for results. Time Spent With Patient Time: Total time managing care of this patient today ____ minutes.
[2023-06-16] MEDS: Multivitamin TABLET 1 TAB PO (09:20)
[2023-06-16] MEDS: Losartan Potassium 50 MG TABLET PO (09:20)
[2023-06-16] MEDS: Furosemide 20 MG TABLET PO (09:21)
[2023-06-16] MEDS: OLANZapine 2.5 MG TABLET PO (09:21)
[2023-06-16] MEDS: Gabapentin 100 MG CAPSULE 200 MG PO ×3 (09:21→20:35)
[2023-06-16] MEDS: metFORMIN HCl ER 500 MG TAB.ER.24H PO (09:21)
[2023-06-16] MEDS: Divalproex Sodium 250 MG TABLET.DR PO ×2 (09:21→20:36)
[2023-06-16] MEDS: Clotrimazole 1 % Cream 15 GM TUBE 1 APPL TOPICAL ×3 (09:25→20:35)
[2023-06-16] MEDS: Lidocaine 4 % Patch ADH..PATCH 1 PATCH TRANSDERMA (09:30)
--- NOTE | 2023-06-16 12:12 | PM.EVENT ---
Event Note Date of Service: 06/16/23 Event Note: Addiction consult requested based on +AUDIT Discussed with attending provider--consult not appropriate. Time Spent With Patient Time: Total time managing care of this patient today ____ minutes.
--- NOTE | 2023-06-16 13:58 | HO.PSYCHPN ---
Subjective Subjective Date of Service: 06/16/23 Reason For Visit: Bipolar d/o, current episode manic w/out psy. feat Subjective Notes: Conditional Voluntary Interim History: The nursing staff reported the patient signed a 3 day notice yesterday. She denies depression she was upset yesterday in the afternoon but she attends to groups. According to the occupational therapist she performed well in the group. The occupational therapist will do a Hitchcock test today. The social service liaison reported the patient has refused to give us permission to talk with her daughter since the patient is accusing the daughter to put her here. On interview the patient was angry and belligerent demanding to be discharged. She also complained of edema. Earlier she was seen by the nurse practitioner and she had an ultrasound to rule out DVT so far no evidence of DVT. Still intrusive with flight of ideas. Mental Status Exam Mental Status Exam Patient Appearance: Well Grooomed and Appropriate Patient Orientation: Person and Situation Level of Consciousness: Awake and Appropriate Patient Behavior: Guarded and Passive Mood Description: Withdrawn Affect Description: Constricted Patient Cognition Impaired: Yes Ability to Follow Directions: Good Speech Pattern: Clear Hallucinations: None Delusions: Ideas of Reference Thought Process: Racing and Distracted Thought Content: positive for [place] and positive for Circumstantial Judgement: Fair Diagnostics Vital Signs (24Hr): Vital Signs - 24 hr 06/15/23 19:30 06/16/23 08:00 Temperature 97.0 F Pulse Rate 55 79 Respiratory Rate 18 18 Blood Pressure 121/60 127/62 Pulse Oximetry 99 99 Oxygen Delivery Method Room Air Room Air BMI result Body Mass Index 28.0 Labs 06/15/23 07:36 Labs: Laboratory Results - last 48 hr 06/15/23 06/15/23 06/15/23 07:36 07:36 07:36 Sodium 139 Potassium 4.0 Chloride 107 Carbon Dioxide 24 Anion Gap 12 BUN 21 H Creatinine 0.84 0.87 Estim Creat Clear Calc 52.4 50.6 Estimated GFR > 60 Fasting Glucose Estimat Average Glucose Hemoglobin A1c % Calcium Total Bilirubin AST ALT Alkaline Phosphatase Total Protein Albumin Triglycerides Cholesterol LDL Cholesterol, Calc HDL Cholesterol 06/15/23 07:36 Sodium Potassium Chloride Carbon Dioxide Anion Gap BUN Creatinine Estim Creat Clear Calc Estimated GFR > 60 Fasting Glucose 107 H Estimat Average Glucose 117 Hemoglobin A1c % 5.7 Calcium 8.9 Total Bilirubin 0.4 AST 18 ALT 18 Alkaline Phosphatase 65 Total Protein 6.5 Albumin 3.6 Triglycerides 41 Cholesterol 165 LDL Cholesterol, Calc 113 H HDL Cholesterol 44 Medications Medications Current Medications Acetaminophen (Acetaminophen 325 Mg Tablet) 650 mg PO Q6H PRN PRN Reason: Headache/Pain Mild Scale (1-3) Al Hydroxide/Mg Hydroxide (Magnesium Hydrox/Alum Hydrox 30 Ml Oral.Susp) 30 ml PO Q6H PRN PRN Reason: Heartburn/Nausea Clotrimazole (Clotrimazole 1 % Cream 15 Gm Tube) 1 appl TOPICAL TID [facility] Last Admin: 06/16/23 09:25 Dose: 1 appl Divalproex Sodium (Divalproex Sodium 250 Mg Tablet.Dr) 250 mg PO BID [facility] Last Admin: 06/16/23 09:21 Dose: 250 mg Furosemide (Furosemide 20 Mg Tablet) 20 mg PO DAILY [facility] Last Admin: 06/16/23 09:21 Dose: 20 mg Gabapentin (Gabapentin 100 Mg Capsule) 200 mg PO TID [facility] Last Admin: 06/16/23 09:21 Dose: 200 mg Ibuprofen (Ibuprofen 600 Mg Tablet) 600 mg PO Q6H PRN PRN Reason: Pain, Moderate(Pain Scale 4-6) Last Admin: 06/16/23 04:19 Dose: 600 mg Lidocaine (Lidocaine 4 % Patch Adh..Patch) 1 patch TRANSDERMA DAILY [facility] Last Admin: 06/16/23 09:30 Dose: 1 patch Losartan Potassium (Losartan Potassium 50 Mg Tablet) 50 mg PO DAILY [facility] Last Admin: 06/16/23 09:20 Dose: 50 mg Magnesium Hydroxide (Milk Of Magnesia 30 Ml Oral.Susp) 30 ml PO DAILY PRN PRN Reason: Constipation Metformin HCl (Metformin Hcl Er 500 Mg Tab.Er.24h) 500 mg PO DAILY [facility] Last Admin: 06/16/23 09:21 Dose: 500 mg Multivitamins/Vitamin C (Multivitamin Tablet) 1 tab PO DAILY [facility] Last Admin: 06/16/23 09:20 Dose: 1 tab Nicotine Polacrilex (Nicotine Polacrilex 2 Mg Gum) 4 mg BUCCAL Q2H PRN PRN Reason: Nicotine Cravings Olanzapine (Olanzapine 5 Mg Tablet) 5 mg PO TID PRN PRN Reason: agitation Olanzapine (Olanzapine 2.5 Mg Tablet) 2.5 mg PO DAILY [facility] Last Admin: 06/16/23 09:21 Dose: 2.5 mg Olanzapine (Olanzapine 5 Mg Tablet) 7.5 mg PO BEDTIME RUT Last Admin: 06/15/23 21:04 Dose: 7.5 mg Trazodone HCl (Trazodone Hcl 50 Mg Tablet) 50 mg PO BEDTIME MRX1 PRN PRN Reason: Insomnia Allergies Allergies Allergy/AdvReac Type Severity Reaction Status Date / Time meclizine Allergy Unknown Verified 06/14/23 21:55 antihistamine Allergy Unknown Uncoded 06/14/23 21:55 Assessment & Plan Assessment & Plan (1) Bipolar disorder: Status: Acute Code(s): F31.9 - Bipolar disorder, unspecified Plan The patient is elderly female with a past history of bipolar disorder who was brought to another hospital due to exacerbation of psychosis elicited by increased agitation flight of ideas and irritability. The patient is a very poor historian but apparently she carries a diagnosis of bipolar disorder and she was poorly compliant probably in the community. Plan 1. Gather collateral information we will try to contact her family and get more information. 2. We will continue with a regular medications started in the hospital with Depakote and Zyprexa. 3. Reassessment with results, continue medical workout. 4. Continue 15 minutes checks. 5. The patient signed a conditional voluntary and later a 3 day notice since she wants to get discharged as soon as possible. Reason for continued inpatient stay Substantial Risk for: inability to function, rapid decompensation and med/psych decompensation Time Spent With Patient Time: Total time managing care of this patient today __20__ minutes.
[2023-06-16 15:28] LABS: Glucose, Whole Blood 91 mg/dL (60-115)
[2023-06-16 18:00] VITALS: BP 145/63; PULSE 84; RESP 18; TEMP 36.4; O2SAT 84
[2023-06-16] MEDS: OLANZapine 5 MG TABLET 7.5 MG PO (20:35)
[2023-06-16] MEDS: traZODone HCL 50 MG TABLET PO (20:35)
[2023-06-17] MEDS: traZODone HCL 50 MG TABLET PO ×3 (01:55→23:55)
[2023-06-17] MEDS: OLANZapine 5 MG TABLET PO ×2 (01:55→18:22)
[2023-06-17 06:29] LABS: Glucose, Whole Blood 111 mg/dL (60-115)
[2023-06-17 07:00] VITALS: BMI 28.7
[2023-06-17 08:00] VITALS: BP 111/53; PULSE 72; RESP 18; TEMP 36.2; O2SAT 100
[2023-06-17] MEDS: Gabapentin 100 MG CAPSULE 200 MG PO ×3 (09:01→20:15)
[2023-06-17] MEDS: Losartan Potassium 50 MG TABLET PO (09:02)
[2023-06-17] MEDS: Furosemide 20 MG TABLET PO (09:02)
[2023-06-17] MEDS: Multivitamin TABLET 1 TAB PO (09:02)
[2023-06-17] MEDS: Divalproex Sodium 250 MG TABLET.DR PO ×2 (09:02→20:14)
[2023-06-17] MEDS: OLANZapine 2.5 MG TABLET PO (09:02)
[2023-06-17] MEDS: metFORMIN HCl ER 500 MG TAB.ER.24H PO (09:03)
[2023-06-17] MEDS: Lidocaine 4 % Patch ADH..PATCH 1 PATCH TRANSDERMA (09:06)
[2023-06-17] MEDS: Clotrimazole 1 % Cream 15 GM TUBE 1 APPL TOPICAL ×3 (10:44→20:19)
--- NOTE | 2023-06-17 13:28 | HO.PSYCHPN ---
Subjective Subjective Date of Service: 06/17/23 Reason For Visit: Bipolar d/o, current episode manic w/out psy. feat Subjective Notes: Conditional Voluntary and 3 Day Interim History: The nursing staff reported the patient had no insight into her condition she had labile affect but no evidence of violent behavior. Yesterday she had her ultrasound came back negative. She was stating to the staff that she was going to [facility] since she is tall information and we are giving pornographic information. [facility] has never been involved in her care. I called his sister Montserrat who reported that she has history of bipolar disorder but no imminent safety concerns. On interview I explained her that she signed a 3 day notice and since she has not suicidal homicidal and she can do her own ADL less she could be discharged tomorrow. Mental Status Exam Mental Status Exam Patient Appearance: Appropriate Patient Orientation: Person and Situation Level of Consciousness: Awake and Appropriate Patient Behavior: Passive Mood Description: Withdrawn Affect Description: Constricted Patient Cognition Impaired: Yes Ability to Follow Directions: Good Speech Pattern: Clear Hallucinations: None Delusions: Paranoid Ideation and Ideas of Reference Thought Process: Racing and Distracted Thought Content: positive for [place] and positive for Poverty of Content Judgement: Fair Diagnostics Vital Signs (24Hr): Vital Signs - 24 hr 06/16/23 18:00 06/17/23 08:00 Temperature 97.5 F 97.1 F Pulse Rate 84 72 Respiratory Rate 18 18 Blood Pressure 145/63 H 111/53 L Pulse Oximetry 84 L 100 Oxygen Delivery Method Room Air Room Air BMI result Body Mass Index 28.0 Labs 06/15/23 07:36 Labs: Laboratory Results - last 48 hr 06/16/23 06/17/23 15:24 06:23 POC Glucose 91 111 Imaging Radiology Impressions: ITS Impressions Venous Duplex 06/16/23 13:30 IMPRESSION: No DVT demonstrated in the bilateral lower extremities. Medications Medications Current Medications Acetaminophen (Acetaminophen 325 Mg Tablet) 650 mg PO Q6H PRN PRN Reason: Headache/Pain Mild Scale (1-3) Al Hydroxide/Mg Hydroxide (Magnesium Hydrox/Alum Hydrox 30 Ml Oral.Susp) 30 ml PO Q6H PRN PRN Reason: Heartburn/Nausea Clotrimazole (Clotrimazole 1 % Cream 15 Gm Tube) 1 appl TOPICAL TID RUT Last Admin: 06/17/23 10:44 Dose: 1 appl Divalproex Sodium (Divalproex Sodium 250 Mg Tablet.Dr) 250 mg PO BID [facility] Last Admin: 06/17/23 09:02 Dose: 250 mg Furosemide (Furosemide 20 Mg Tablet) 20 mg PO DAILY [facility] Last Admin: 06/17/23 09:02 Dose: 20 mg Gabapentin (Gabapentin 100 Mg Capsule) 200 mg PO TID [facility] Last Admin: 06/17/23 09:01 Dose: 200 mg Ibuprofen (Ibuprofen 600 Mg Tablet) 600 mg PO Q6H PRN PRN Reason: Pain, Moderate(Pain Scale 4-6) Last Admin: 06/16/23 20:35 Dose: 600 mg Lidocaine (Lidocaine 4 % Patch Adh..Patch) 1 patch TRANSDERMA DAILY [facility] Last Admin: 06/17/23 09:06 Dose: 1 patch Losartan Potassium (Losartan Potassium 50 Mg Tablet) 50 mg PO DAILY [facility] Last Admin: 06/17/23 09:02 Dose: 50 mg Magnesium Hydroxide (Milk Of Magnesia 30 Ml Oral.Susp) 30 ml PO DAILY PRN PRN Reason: Constipation Metformin HCl (Metformin Hcl Er 500 Mg Tab.Er.24h) 500 mg PO DAILY [facility] Last Admin: 06/17/23 09:03 Dose: 500 mg Multivitamins/Vitamin C (Multivitamin Tablet) 1 tab PO DAILY [facility] Last Admin: 06/17/23 09:02 Dose: 1 tab Nicotine Polacrilex (Nicotine Polacrilex 2 Mg Gum) 4 mg BUCCAL Q2H PRN PRN Reason: Nicotine Cravings Olanzapine (Olanzapine 5 Mg Tablet) 5 mg PO TID PRN PRN Reason: agitation Last Admin: 06/17/23 01:55 Dose: 5 mg Olanzapine (Olanzapine 2.5 Mg Tablet) 2.5 mg PO DAILY [facility] Last Admin: 06/17/23 09:02 Dose: 2.5 mg Olanzapine (Olanzapine 5 Mg Tablet) 7.5 mg PO BEDTIME [facility] Last Admin: 06/16/23 20:35 Dose: 7.5 mg Trazodone HCl (Trazodone Hcl 50 Mg Tablet) 50 mg PO BEDTIME MRX1 PRN PRN Reason: Insomnia Last Admin: 06/17/23 01:55 Dose: 50 mg Allergies Allergies Allergy/AdvReac Type Severity Reaction Status Date / Time meclizine Allergy Unknown Verified 06/14/23 21:55 antihistamine Allergy Unknown Uncoded 06/14/23 21:55 Assessment & Plan Assessment & Plan (1) Bipolar disorder: Status: Acute Code(s): F31.9 - Bipolar disorder, unspecified Plan The patient is elderly female with a past history of bipolar disorder who was brought to another hospital due to exacerbation of psychosis elicited by increased agitation flight of ideas and irritability. The patient is a very poor historian but apparently she carries a diagnosis of bipolar disorder and she was poorly compliant probably in the community. Plan 1. Gather collateral information we will try to contact her family and get more information. 2. We will continue with a regular medications started in the hospital with Depakote and Zyprexa. 3. Reassessment with results, continue medical workout. 4. Continue 15 minutes checks. 5. The patient signed a conditional voluntary and later a 3 day notice since she wants to get discharged as soon as possible. 6. Collateral information was obtained and there is no imminent danger to self or other so she is going nancy be discharged. Reason for continued inpatient stay Substantial Risk for: inability to function, rapid decompensation and med/psych decompensation Time Spent With Patient Time: Total time managing care of this patient today __20__ minutes.
[2023-06-17] MEDS: Ibuprofen 600 MG TABLET PO ×2 (13:41→20:15)
[2023-06-17 18:00] VITALS: BP 134/82; PULSE 84; RESP 18; TEMP 36.1; O2SAT 99
[2023-06-17] MEDS: OLANZapine 5 MG TABLET 7.5 MG PO (20:14)
[2023-06-18 06:16] LABS: Glucose, Whole Blood 102 mg/dL (60-115)
--- NOTE | 2023-06-18 07:42 | PM.PSYDC ---
DS: Providers Provider Date of Service: 06/18/23 Date of admission: 06/14/23 21:18 Date of discharge: 06/18/23 Primary care physician: Rodney Ordoñez MD Consults: 06/14/23 21:58 Consult to Hospitalist Routine Comment: Consulting Provider: Hospitalist Reason For Exam: admission physical 06/14/23 23:33 Addiction Medicine Routine Consulting Provider: Addiction Covering Reason for consultation: etoh 06/15/23 18:46 Consult to Hospitalist Routine Comment: Consulting Provider: Hospitalist Reason For Exam: lower leg edema DS: Diagnosis Discharge Diagnosis (1) Bipolar disorder: Status: Acute DS: Medications Discharge Medications Home Medications: Home Medications ?Medication ?Instructions ?Recorded ?Confirmed Vitamin B-12 50 mcg PO DAILY 06/14/23 06/15/23 Zyprexa 2.5 mg PO DAILY 06/14/23 06/15/23 Zyprexa 7.5 mg PO BEDTIME 06/14/23 06/15/23 divalproex 250 mg PO BID 06/14/23 06/14/23 furosemide 20 mg PO DAILY 06/14/23 06/15/23 gabapentin 200 mg PO TID 06/14/23 06/15/23 lidocaine 1 applic topical DAILY 06/14/23 06/15/23 losartan 50 mg PO DAILY 06/14/23 06/15/23 metformin 500 mg PO DAILY 06/14/23 06/15/23 miconazole 1 applic topical TID 06/14/23 06/15/23 multivitamin 1 tab PO DAILY 06/14/23 06/15/23 Mental Status Exam Mental Status Exam Patient Appearance: Well Grooomed and Appropriate Patient Orientation: Person, Place and Situation Level of Consciousness: Awake and Appropriate Patient Behavior: Appropriate and Guarded Mood Description: Calm Affect Description: Constricted Patient Cognition Impaired: Yes Ability to Follow Directions: Fair Speech Pattern: Clear Hallucinations: None Delusions: Not Present Thought Process: Distracted and Linear Thought Content: positive for [place] and positive for Circumstantial Judgement: Fair Data Data Completed and Pending Completed studies during hospitalization [Text1]: 06/15/23 06/15/23 06/15/23 07:36 07:36 07:36 Sodium 139 Potassium 4.0 Chloride 107 Carbon Dioxide 24 Anion Gap 12 BUN 21 H Creatinine 0.84 0.87 Estim Creat Clear Calc 52.4 50.6 Estimated GFR > 60 POC Glucose Fasting Glucose Estimat Average Glucose Hemoglobin A1c % Calcium Total Bilirubin AST ALT Alkaline Phosphatase Total Protein Albumin Triglycerides Cholesterol LDL Cholesterol, Calc HDL Cholesterol 06/15/23 06/16/23 06/17/23 07:36 15:24 06:23 Sodium Potassium Chloride Carbon Dioxide Anion Gap BUN Creatinine Estim Creat Clear Calc Estimated GFR > 60 POC Glucose 91 111 Fasting Glucose 107 H Estimat Average Glucose 117 Hemoglobin A1c % 5.7 Calcium 8.9 Total Bilirubin 0.4 AST 18 ALT 18 Alkaline Phosphatase 65 Total Protein 6.5 Albumin 3.6 Triglycerides 41 Cholesterol 165 LDL Cholesterol, Calc 113 H HDL Cholesterol 44 06/18/23 06:02 Sodium Potassium Chloride Carbon Dioxide Anion Gap BUN Creatinine Estim Creat Clear Calc Estimated GFR POC Glucose 102 Fasting Glucose Estimat Average Glucose Hemoglobin A1c % Calcium Total Bilirubin AST ALT Alkaline Phosphatase Total Protein Albumin Triglycerides Cholesterol LDL Cholesterol, Calc HDL Cholesterol Imaging Diagnostic Imaging Impressions Venous Duplex 06/16/23 13:30 IMPRESSION: No DVT demonstrated in the bilateral lower extremities. DS: Summary Hospital Course Hospital Course: The patient is a 77-year-old female, living in an senior housing facility referred from another hospital out of our catchment area for disorganized behavior, agitation and flight of ideas. The patient carries a diagnosis of bipolar disorder and apparently she had been on compliant with treatment. Please see the HPI of the admission note for further details. On intake, the patient signed a conditional voluntary and she was willing to follow treatment but she wanted to be discharged as soon as possible so she signed a 3 day notice. We try to gather more collateral information regarding her symptoms. The patient was admitted before several years ago against her will for manic symptoms and apparently she had been disruptive in the community if even though that the patient was manic with flight of ideas there were no evidence of violent behavior. While she was in the unit, the patient was belligerent at times but easily redirectable. She was more concerned about her medical problems such as edema, she was medically workout and we had an ultrasound that did not show DVT. She was adamant about being discharged as soon as possible. She was fully compliant with Zyprexa and Depakote, no evidence of side effects and there were no evidence of safety concerns. I contact her sister who provided more information but unfocused finally we do not have enough grounds to file a Section 7 and 8. At the moment of the discharge the patient was pleasant, cooperative, future oriented with less manic symptoms since he had been taking Zyprexa and Depakote. No immediate safety concerns. No evidence of psychosis. Time spent discussing smoking cessation with patient: 3 to 10 minutes Status at Discharge Cognitive/behavioral status at discharge: Impaired at baseline. We did cognitive testing but she was able to do her own activities of daily life. Functional status at discharge: independent ambulation Overall status at discharge: patient is progressing back to baseline Time Spent with Patient Time attestation: Total time managing care of this patient today _30___ minutes. Time spent: Less than 30 minutes Discharge Plan Discharge Anticipated Discharge Date/Time: 06/18/23 08:30 Patient Disposition: Home, Self-Care Discharge Diagnosis: Bipolar disorder Dementia early stages. Referrals: [facility] [Other] - 1 Week (Information for [facility] to access health care/mental health resources ) Rodney Ordoñez MD [Primary Care Provider] - 06/22/23 2:30 pm (Your follow up appointment has been scheduled for Wednesday06/22/23 at 2:30pm with Dr. Ordoñez) Discharge Medications: New trazodone 50 mg Tablet 50 mg PO BEDTIME MRX1 PRN (Reason: Insomnia) 30 Days Qty: 30 0RF nicotine (polacrilex) 2 mg Gum 4 mg buccal Q2H PRN (Reason: Nicotine Cravings) Qty: 30 0RF Continued Vitamin B-12 tablet 50 mcg PO DAILY 30 Days Qty: 30 0RF Zyprexa tablet 2.5 mg PO DAILY 30 Days Qty: 30 0RF Zyprexa tablet 7.5 mg PO BEDTIME 30 Days Qty: 30 0RF divalproex capsule 250 mg PO BID 30 Days Qty: 60 0RF furosemide tablet 20 mg PO DAILY 30 Days Qty: 30 0RF gabapentin capsule 200 mg PO TID 30 Days Qty: 90 0RF lidocaine patch 1 applic topical DAILY 30 Days Qty: 30 0RF losartan tablet 50 mg PO DAILY 30 Days Qty: 30 0RF metformin tablet 500 mg PO DAILY 30 Days Qty: 30 0RF miconazole cream 1 applic topical TID 30 Days Qty: 1 0RF multivitamin tablet 1 tab PO DAILY 30 Days Qty: 30 0RF Discharge Orders: Discharge Order (Routine); Ordered 06/18/23 Ordered By: Jeancarlos Ewing Diet: Advance to usual diet Activity on Discharge: As tolerated Stand Alone Forms: Patient Portal Discharge page Print Language: Sammarinese Care Plan Goals: Care plan goals achieved in this admission Health Concerns: Continue medical treatment with primary care physician. We highly suggested to continue psychiatric treatment Plan of Treatment: Continue psychiatric treatment as an outpatient Assessment: Elderly female with a past history of bipolar disorder who was brought to the facility due to disruptive behavior in the context of andie. The patient signed conditional voluntary and a 3 day notice and why she was here she improved remarkably with Zyprexa and Depakote. At this moment no safety concerns or grounds to file a Section 7 and 8.
[2023-06-18 08:00] VITALS: BP 108/52; PULSE 77; RESP 18; TEMP 36; O2SAT 98
[2023-06-18] MEDS: metFORMIN HCl ER 500 MG TAB.ER.24H PO (08:32)
[2023-06-18] MEDS: Furosemide 20 MG TABLET PO (08:32)
[2023-06-18] MEDS: Losartan Potassium 50 MG TABLET PO (08:32)
[2023-06-18] MEDS: Gabapentin 100 MG CAPSULE 200 MG PO (08:32)
[2023-06-18] MEDS: Multivitamin TABLET 1 TAB PO (08:32)
[2023-06-18] MEDS: OLANZapine 2.5 MG TABLET PO (08:33)
[2023-06-18] MEDS: Divalproex Sodium 250 MG TABLET.DR PO (08:33)
[2023-06-18] MEDS: Clotrimazole 1 % Cream 15 GM TUBE 1 APPL TOPICAL (08:33)
[2023-06-18] MEDS: Lidocaine 4 % Patch ADH..PATCH 1 PATCH TRANSDERMA (08:42)
--- NOTE | 2023-06-18 09:39 | PC.NURSE ---
Reviewed paperwork with patient, pt signed off. Copy of paperwork given to Patient's daughter. Both stated they have no questions regarding paperwork. The patient left the floor at 0915.
== END 2023-06-18 09:15 | disposition home or self-care (01) | DRG 885 ==
PROVIDERS: Psychiatry & Neurology Psychiatry; Admitting Provider Psychiatry & Neurology Psychiatry; PCP Internal Medicine; Visit Provider Psychiatry & Neurology Psychiatry
DX: F31.10 Bipolar disorder, current episode manic without psychotic features, unspecified (principal); I12.9 Hypertensive chronic kidney disease with stage 1 through stage 4 chronic kidney disease, or unspecified chronic kidney disease; N18.2 Chronic kidney disease, stage 2 (mild); E11.22 Type 2 diabetes mellitus with diabetic chronic kidney disease; I87.323 Chronic venous hypertension (idiopathic) with inflammation of bilateral lower extremity; Z79.84 Long term (current) use of oral hypoglycemic drugs; Z79.899 Other long term (current) drug therapy
CPT/HCPCS: 36415; 80053; 80061; 82565; 82947; 83036; 93005; 93970

== ENCOUNTER → 2023-06-14 21:18 | Outpatient (BNV) | payer MEDICARE, MEDICAID, SELFPAY | PROVIDERS: Admitting Provider Psychiatry & Neurology Psychiatry; PCP Internal Medicine; Visit Provider Psychiatry & Neurology Psychiatry | DX: F31.13 Bipolar disorder, current episode manic without psychotic features, severe (principal) | CPT/HCPCS: 90792; 99231; 99238; 99499 ==

== ENCOUNTER → 2023-06-14 21:18 | Outpatient (BNV) | payer MEDICARE, MEDICAID, SELFPAY | PROVIDERS: Admitting Provider Psychiatry & Neurology Psychiatry; Visit Provider Physician Assistant | DX: Z00.00 Encounter for general adult medical examination without abnormal findings (principal) | CPT/HCPCS: 99499 ==